=== PATIENT | female | born 1930 | race Caucasian/White ===

== ENCOUNTER 2017-12-08 00:06 | Inpatient (IN) | payer OTHER, MEDICARE ==
[2017-12-08 01:34] VITALS: TEMP 97.5; BMI 24.0
--- NOTE | 2017-12-08 02:05 | PDOC ---
History of Present Illness - General History Source: Patient Exam Limitations: No Limitations - History of Present Illness Initial Comments: 12/08/17 02:37 The patient is an 87 year old female with a significant PMH of CAD (s/p 2 stents , on Plavix), diabetes, HTN, hyperlipidemia who presents to the emergency department with intermittent chest pain over the past month which acutely worsened over the past 2 days. The patient reports prior to presentation her chest pain became a severe 10/10 pressure like sensation with radiation bilaterally to arms. She also reports nausea, vomiting, and diaphoresis with her symptoms. The patient endorses a past history of cigarette use. The patient denies shortness of breath, headache and dizziness. Denies fever, chills, diarrhea and constipation. Denies dysuria, frequency, urgency and hematuria. Allergies: NKA Past surgical history: Stents x2. Appendectomy. Mastectomy. Social history: Former smoker PCP/Cardio: Dr. Crow <Wilmer Corey - Last Filed: 12/08/17 03:26> - General History Source: Patient <Basilio Bar - Last Filed: 12/08/17 19:27> - General Chief Complaint: Pain Stated Complaint: CHEST PAIN Time Seen by Provider: 12/08/17 02:04 Past History <Wilmer Corey - Last Filed: 12/08/17 03:26> - Past Medical History Cardiac Disorders: Yes COPD: No Diabetes: Yes HTN: Yes Hypercholesterolemia: Yes - Surgical History Appendectomy: Yes Cardiac Surgery: Yes (STENTS x 2) Orthopedic Surgery: Yes (R. Femur) - Suicide/Smoking/Psychosocial Hx Smoking History: Former smoker Have you smoked in the past 12 months: No If you are a former smoker, when did you quit?: Over 40 years ago Information on smoking cessation initiated: No Hx Alcohol Use: No Drug/Substance Use Hx: No Substance Use Type: None Hx Substance Use Treatment: No <Basilio Bar - Last Filed: 12/08/17 19:27> - Past Medical History Allergies/Adverse Reactions: Allergies Allergy/AdvReac Type Severity Reaction Status Date / Time No Known Allergies Allergy Verified 12/08/17 01:30 Home Medications: Ambulatory Orders Aspirin [ASA -] 81 mg PO DAILY 02/26/14 Lisinopril [Zestril] 40 mg PO DAILY 06/30/14 Atorvastatin Ca [Lipitor] 40 mg PO HS 01/29/16 Clopidogrel Bisulfate [Plavix -] 75 mg PO DAILY 01/29/16 Diltiazem HCl [Diltiazem 24Hr ER] 120 mg PO DAILY 01/29/16 Insulin Glargine,Hum.rec.anlog [Kyra Healy] 10 units SQ DAILY 01/29/16 Review of Systems - Review of Systems Able to Perform ROS?: Yes Comments:: 12/08/17 02:37 CONSTITUTIONAL: (+) Diaphoresis Absent: fever, chills, generalized weakness, malaise, loss of appetite HEENT: Absent: rhinorrhea, nasal congestion, throat pain, throat swelling, difficulty swallowing, mouth swelling, ear pain, eye pain, visual Changes CARDIOVASCULAR: (+) Chest pain with radiation bilaterally. Absent: syncope, palpitations, lightheadedness, peripheral edema RESPIRATORY: Absent: cough, shortness of breath, dyspnea with exertion, orthopnea, wheezing, stridor, hemoptysis GASTROINTESTINAL: (+) Nausea (+) Vomiting Absent: abdominal pain, abdominal distension, nausea, vomiting, diarrhea, constipation, melena, hematochezia GENITOURINARY: Absent: dysuria, frequency, urgency, hesitancy, hematuria, flank pain, genital pain MUSCULOSKELETAL: Absent: myalgia, arthralgia, joint swelling SKIN: Absent: rash, itching, pallor HEMATOLOGIC/IMMUNOLOGIC: Absent: easy bleeding, easy bruising, lymphadenopathy, frequent infections ENDOCRINE: Absent: unexplained weight gain, unexplained weight loss, heat intolerance, cold intolerance NEUROLOGIC: Absent: headache, focal weakness or paresthesias, dizziness, unsteady gait, seizure, mental status changes, bladder or bowel incontinence PSYCHIATRIC: Absent: anxiety, depression, suicidal or homicidal ideation, hallucinations. <Wilmer Corey - Last Filed: 12/08/17 03:26> *Physical Exam - Vital Signs Last Vital Signs Temp Pulse Resp BP Pulse Ox 97.5 F L 152 H 20 147/96 95 12/08/17 01:30 12/08/17 01:30 12/08/17 01:30 12/08/17 01:30 12/08/17 01:30 - Physical Exam Comments: 12/08/17 02:38 GENERAL: Well developed, well nourished. Awake and alert. No acute distress. HEENT: Normocephalic, atraumatic. PERRLA, EOMI. No conjunctival pallor. Sclera are non- icteric. Moist mucous membranes. Oropharynx is clear. NECK: Supple. Full ROM. No JVD. Carotid pulses 2+ and symmetric, without bruits. No thyromegaly. No lymphadenopathy. CARDIOVASCULAR: (+) Irregularly irregular rate and rhythm PULMONARY: No evidence of respiratory distress. Lungs clear to auscultation bilaterally. No wheezing, rales or rhonchi. ABDOMINAL: Soft. Non-tender. Non-distended. No rebound or guarding. No organomegaly. Normoactive bowel sounds. MUSCULOSKELETAL Normal range of motion at all joints. No bony deformities or tenderness. No CVA tenderness. EXTREMITIES: No cyanosis. No clubbing. No edema. No calf tenderness. SKIN: Warm and dry. Normal capillary refill. No rashes. No jaundice. NEUROLOGICAL: Alert, awake, appropriate. Cranial nerves 2-12 intact. No deficits to light touch and temperature in face, upper extremities and lower extremities. No motor deficits in the in face, upper extremities and lower extremities. Normoreflexic in the upper and lower extremities. Normal speech. Toes are downgoing bilaterally. PSYCHIATRIC: Cooperative. Good eye contact. Appropriate mood and affect. <Wilmer Corey - Last Filed: 12/08/17 03:26> - Vital Signs Last Vital Signs Temp Pulse Resp BP Pulse Ox 97.5 F L 152 H 20 147/96 95 12/08/17 01:30 12/08/17 01:30 12/08/17 01:30 12/08/17 01:30 12/08/17 01:30 <Basilio Bar - Last Filed: 12/08/17 19:27> Heart Score/ECG Review #1 12/08/17 03:27 EKG done at 2:22 Vent rate 143 bpm Atrial fibrillation with rapid ventricular response. Septal infarct, age undetermined Marked ST abnormality, possible inferior subendocardial injury Marked ST abnormality, possible anterolateral subendocardial injury Abnormal ECG #2 12/08/17 03:28 EKG done at 3:16 (after Cardizem) Vent rate 77 bpm Normal sinus rhythm Nonspecific ST abnormality Abnormal QRS-T angle, consider primary T wave abnormality Abnormal ECG <Wilmer Corey - Last Filed: 12/08/17 03:26> ED Treatment Course - LABORATORY CBC & Chemistry Diagram: 12/08/17 02:27 12/08/17 02:27 <Wilmer Corey - Last Filed: 12/08/17 03:26> - LABORATORY CBC & Chemistry Diagram: 12/08/17 08:30 12/08/17 08:30 <Basilio Bar - Last Filed: 12/08/17 19:27> Medical Decision Making - Medical Decision Making 12/08/17 19:27 Dr. Bar: The scribe's documentation has been prepared under my direction and personally reviewed by me in its entirery. I confirm that the note above accurately reflects all work, treatment, procedures, and medical decision making performed by me. <Basilio Bar - Last Filed: 12/08/17 19:27> *DC/Admit/Observation/Transfer - Attestations Scribe Attestion: 12/08/17 02:38 Documentation prepared by Wilmer Corey, acting as center medical specialist for Basilio Bar DO. <Wilmer Corey - Last Filed: 12/08/17 03:26> - Discharge Dispostion Admit: Yes <Basilio Bar - Last Filed: 12/08/17 19:27> Diagnosis at time of Disposition: New onset a-fib, NSTEMI (non-ST elevated myocardial infarction) Chest pain Qualifiers: Chest pain type: unspecified Qualified Code(s): R07.9 - Chest pain, unspecified - Discharge Dispostion Disposition: TRANSFER ACUTE CARE/OTHER HOSP Condition at time of disposition: Stable
[2017-12-08] MEDS ORDERED: morphine CARPU-JECT 2 MG/1 ML DISP.SYRIN IVPUSH ONE ×2 (02:07→03:09)
[2017-12-08] MEDS ORDERED: ASPIRIN 81 MG CHEWABLE TABLETS PO ONE (02:08)
[2017-12-08] MEDS ORDERED: ONDANSETRON 4 MG/2 ML VIAL IVPUSH STA (02:08)
[2017-12-08] MEDS ORDERED: CLOPIDOGREL BISULFATE 300 MG TABLET PO ONE (02:11)
[2017-12-08] MEDS ORDERED: morphine SULFATE 4 MG/ML VIAL ONE (02:13)
[2017-12-08] MEDS ORDERED: ASPIRIN 325 MG ENTERIC COATED TABLET (FP) ONE ×2 (02:13→02:23)
[2017-12-08] MEDS ORDERED: ONDANSETRON 4 MG/2 ML VIAL ONE (02:13)
[2017-12-08] MEDS ORDERED: dilTIAZem HCL 50 MG/10 ML - 10 ML VIAL IVPUSH ONE (02:22)
[2017-12-08] MEDS ORDERED: dilTIAZem HCL 125 MG/25 ML - 25 ML VIAL ONE (02:23)
[2017-12-08 02:36] LABS: BASO % 0.5 % (0-2.0); EOS % 1.2 % (0-4.5); HEMATOCRIT 30.1 % (32.4-45.2); HEMOGLOBIN 10.2 GM/dL (10.7-15.3); LYMPH % 14.7 % (8-40); MCH 31.2 pg (25.7-33.7); MEAN CELL VOLUME 91.7 fl (80-96); MEAN PLT VOLUME 10.9 fl (7.5-11.1); MONO % 4.8 % (3.8-10.2); NEUT % 78.8 % (42.8-82.8); PLATELET COUNT 193 K/MM3 (134-434); RBC 3.28 M/mm3 (3.60-5.2); RDW 14.6 % (11.6-15.6); WHITE BLOOD COUNT 10.8 K/mm3 (4.0-10.0)
[2017-12-08] MEDS ORDERED: CLOPIDOGREL BISULFATE 300 MG TABLET ONE (02:43)
[2017-12-08 02:47] LABS: INR 1.04 (0.82-1.09); PROTHROMBIN TIME (PATIENT) 11.8 SEC (9.98-11.88)
[2017-12-08 02:58] LABS: ALBUMIN 3.3 g/dl (3.4-5.0); ALK PHOS 89 U/L (45-117); ANION GAP 14 (8-16); BILIRUBIN,TOTAL 0.3 mg/dL (0.2-1.0); BLOOD UREA NITROGEN 22 mg/dL (7-18); CALCIUM 8.7 mg/dL (8.5-10.1); CHLORIDE 106 mmol/L (98-107); CO2 20 mmol/L (21-32); CREATININE 0.8 mg/dL (0.55-1.02); GLUCOSE,RANDOM 221 mg/dL (74-106); SGOT/AST 24 U/L (15-37); SGPT/ALT 17 U/L (12-78); SODIUM 140 mmol/L (136-145); TOT PROT 7.2 g/dl (6.4-8.2)
[2017-12-08] MEDS ORDERED: MORPHINE SULFATE 10 MG/1 ML *VIAL ONE (03:20)
--- NOTE | 2017-12-08 03:49 | PN ---
Teaching Attending Note Name of Resident: Stephanie Bey ATTENDING PHYSICIAN STATEMENT I saw and evaluated the patient. I reviewed the resident's note and discussed the case with the resident. I agree with the resident's findings and plan as documented. SUBJECTIVE: 87 F w. pmhx. of CAD s/p 2 stents on Plavix, DM, HTN, and HLD who presents with intermittent chest pain. States Pain began around 1 month ago. Notes pain has been worse over a 2 day duration. Pain is 10/10 and radiates to arms bilaterally. States she is also nausous, and was diaphoretic. OBJECTIVE: Physical: VS: Vital Signs Period Temp Pulse Resp BP Sys/Phelps Pulse Ox Last 24 Hr 97.5 F 99-152 17-20 147-153/91-96 95-100 GEN: HEENT: CARD: RESP: ABD: EXT: CBCD WBC 10.8 K/mm3 (4.0-10.0) H 12/08/17 02:27 RBC 3.28 M/mm3 (3.60-5.2) L 12/08/17 02:27 Hgb 10.2 GM/dL (10.7-15.3) L D 12/08/17 02:27 Hct 30.1 % (32.4-45.2) L 12/08/17 02:27 MCV 91.7 fl (80-96) 12/08/17 02:27 MCHC 34.0 g/dl (32.0-36.0) 12/08/17 02:27 RDW 14.6 % (11.6-15.6) 12/08/17 02:27 Plt Count 193 K/MM3 (134-434) 12/08/17 02:27 MPV 10.9 fl (7.5-11.1) 12/08/17 02:27 CMP Sodium 140 mmol/L (136-145) 12/08/17 02:27 Potassium 4.0 mmol/L (3.5-5.1) 12/08/17 02:27 Chloride 106 mmol/L (98-107) 12/08/17 02:27 Carbon Dioxide 20 mmol/L (21-32) L 12/08/17 02:27 Anion Gap 14 (8-16) 12/08/17 02:27 BUN 22 mg/dL (7-18) H 12/08/17 02:27 Creatinine 0.8 mg/dL (0.55-1.02) 12/08/17 02:27 Creat Clearance w eGFR > 60 (>60) 12/08/17 02:27 Random Glucose 221 mg/dL (74-106) H 12/08/17 02:27 Calcium 8.7 mg/dL (8.5-10.1) 12/08/17 02:27 Total Bilirubin 0.3 mg/dL (0.2-1.0) D 12/08/17 02:27 AST 24 U/L (15-37) 12/08/17 02:27 ALT 17 U/L (12-78) 12/08/17 02:27 Alkaline Phosphatase 89 U/L (45-117) 12/08/17 02:27 Total Protein 7.2 g/dl (6.4-8.2) 12/08/17 02:27 Albumin 3.3 g/dl (3.4-5.0) L 12/08/17 02:27 CARDIAC ENZYMES Creatine Kinase 116 IU/L (26-192) 12/08/17 02:27 Troponin I 0.37 ng/ml (0.00-0.05) H 12/08/17 02:27 EKG done at 2:22 Vent rate 143 bpm Atrial fibrillation with rapid ventricular response. Septal infarct, age undetermined Marked ST abnormality, possible inferior subendocardial injury Marked ST abnormality, possible anterolateral subendocardial injury Abnormal ECG #2 12/08/17 03:28 EKG done at 3:16 (after Cardizem) Vent rate 77 bpm Normal sinus rhythm Nonspecific ST abnormality Abnormal QRS-T angle, consider primary T wave abnormality Abnormal ECG CXR- Unable to Open on Computer will follow Home Medications Medication Instructions Recorded Aspirin [ASA -] 81 mg PO DAILY 02/26/14 Lisinopril [Zestril] 40 mg PO DAILY 02/26/14 Atorvastatin Ca [Lipitor] 40 mg PO HS 01/29/16 Clopidogrel Bisulfate [Plavix -] 75 mg PO DAILY 01/29/16 Diltiazem HCl [Diltiazem 24Hr ER] 120 mg PO DAILY 01/29/16 Insulin Glargine,Hum.rec.anlog 10 units SQ DAILY 01/29/16 [Kyra Healy] ASSESSMENT AND PLAN: 87 F w. pmhx. of CAD s/p 2 stents on Plavix, DM, HTN, and HLD who presents with intermittent chest pain, found to be in New onset A-Fib, and elevated troponin 1.) Chest Pain- RO AC/ Hc. of CAD - HEART 7 - Troponin Elevation - NSTEMI vs. Demand - Trend Trop/EKg - May be due to new onset A-Fib - S/P ASA/Plavix in ED - 02 NC - Morphine/Nitro prn CP - BB 2.) NEW Onset A-Fib - [id number] - A/C with Lovenox 70 q 12 - S/P Cardizem in ED, now rate controlled - Echo 3.) DM - FS - RAISS - DM Diet - Glargine 4.) HTN - C/W Cardizem/ Bryon 5.) HLD - C/W Statin 6.) Dvt Ppx - On Lovenox Place in [facility]-Tele
[2017-12-08] MEDS ORDERED: dilTIAZem HCL 50 MG/10 ML - 10 ML VIAL IVPUSH PRN (04:19)
[2017-12-08] MEDS ORDERED: morphine SULFATE 4 MG/ML VIAL IVPUSH PRN (04:21)
[2017-12-08] MEDS ORDERED: NITROGLYCERIN SUBLINGUAL 1/150 0.4 MG TAB SL PRN (04:21)
--- NOTE | 2017-12-08 04:42 | HP ---
CHIEF COMPLAINT: Chest Pain PCP: None HISTORY OF PRESENT ILLNESS: 87yo F with PMHx of CAD s/p 2 stents who presents with severe typical chest pain. It is pressure like, radiates down both arms, associated with diaphoresis , and improved with morphine in ambulance. The patient admits to anginal symptoms over the past two weeks. Patient follows w/ Dr Crow. Received 2 stents in 2013 after +stress test. States 2/3 diseased vessels were canalized w / stent at [facility]. In the ER, patient was hemodynamically stable. Labs notable for mild troponins. She was given morphine, O2, loading dose ASA/plavix with relief of pain. EKG was notable for new onset Afib w/ RVR in the 150s with ST depressions in the inferior and lateral leads. She was given 20 of Cardizem with successful conversion into sinus rhythm. Recent Travel: Denies PAST MEDICAL HISTORY: CAD s/p 2 stents, DM2, HTN, HLD, Breast CA (s/p mastectomy ) PAST SURGICAL HISTORY: 2 stents, L mastectomy w/ unilateral lymphedema Social History: Smoking: Prior smoker Alcohol: Denies Drugs: Denies Allergies: No Known Allergies Allergy (Verified 12/08/17 01:30) HOME MEDICATIONS: Home Medications Medication Instructions Recorded Aspirin [ASA -] 81 mg PO DAILY 02/26/14 Lisinopril [Zestril] 40 mg PO DAILY 02/26/14 Atorvastatin Ca [Lipitor] 40 mg PO HS 01/29/16 Clopidogrel Bisulfate [Plavix -] 75 mg PO DAILY 01/29/16 Diltiazem HCl [Diltiazem 24Hr ER] 120 mg PO DAILY 01/29/16 Insulin Glargine,Hum.rec.anlog 10 units SQ DAILY 01/29/16 [Kyra Healy] REVIEW OF SYSTEMS CONSTITUTIONAL: Absent: fever, chills, diaphoresis, generalized weakness, malaise, loss of appetite, weight change HEENT: Absent: rhinorrhea, nasal congestion, throat pain, throat swelling, difficulty swallowing, mouth swelling, ear pain, eye pain CARDIOVASCULAR: +chest pain Absent: syncope, palpitations, irregular heart rate , lightheadedness, RESPIRATORY: Absent: cough, shortness of breath, dyspnea with exertion, orthopnea, wheezing, stridor, hemoptysis GASTROINTESTINAL:Absent: abdominal pain, abdominal distension, nausea, vomiting , diarrhea, constipation, melena, hematochezia GENITOURINARY: Absent: dysuria, frequency, urgency, hesitancy, hematuria, flank pain, genital pain MUSCULOSKELETAL: Absent: myalgia, arthralgia, joint swelling, back pain, neck pain SKIN: Absent: rash, itching, pallor HEMATOLOGIC/IMMUNOLOGIC: Absent: easy bleeding, easy bruising, lymphadenopathy, frequent infections ENDOCRINE:Absent: unexplained weight gain, unexplained weight loss, heat intolerance, cold intolerance NEUROLOGIC: Absent: headache, focal weakness or paresthesias, dizziness, unsteady gait, seizure, mental status changes, PSYCHIATRIC: Absent: anxiety, depression, suicidal or homicidal ideation, hallucinations. PHYSICAL EXAMINATION Vital Signs Period Temp Pulse Resp BP Sys/Phelps Pulse Ox Last 24 Hr 97.5 F 99-152 17-20 147-153/91-96 95-100 GEN: AAOx3, NAD, Lying comfortably, conversing with examiner HEENT: PERRLA, EOMi CV: S1, S2, RRR with 3/6 systolic murmur in RUSB LUNG: Mild basilar crackles ABD: Soft, NT, ND MSK: +2 edema in RLE (related to lymphedema from prior mastectomy) NEURO: CN 2-12 intact, no msk or sensation deficits ASSESSMENT/PLAN: 87yo F with PMHx of CAD s/p 2 stents who presents with severe typical chest pain , found to have NSTEMI with new onset Afib w/ RVR # Chest Pain -- Differentials include NSTEMI vs demand from RVR. ST depressions resolved with rate control. Continue to trend troponins, if trops trend up with rate control, consider primary NSTEMI. Given loading dose ASA, plavix. Continue w/ O2 , morphine/nitro PRN. Cardio consult, likely cath. # New onset Afib -- Presented in RVR, converted to sinus after Cardizem 20. Likely secondary to underlying cardiac disease. Will get TSH. Echo. Continue home long acting cardizem with prn pushes. VTE prophylaxis with Lovenox 1mg/kg BID. # HTN -- Controlled. Continue long acting Cardizem and ACEi # IDDM -- Continue long acting glargine. BGM, ISS. # HLD -- Continue home statin # FEN/PPx -- Cardiac diet, no IVF. Already on Lovenox for VTE prophylaxis # Dispo -- Admit to tele Case d/w Dr Houston & Dr Soto Morning team to take over in AM Stephanie Bey MD - PGY1 Internal Medicine Visit type - Emergency Visit Emergency Visit: Yes ED Registration Date: 12/08/17 Care time: The patient presented to the Emergency Department on the above date and was hospitalized for further evaluation of their emergent condition. - New Patient This patient is new to me today: Yes Date on this admission: 12/08/17 - Critical Care Critical Care patient: No Hospitalist Screening - Colonoscopy Questionnaire Colonoscopy Questionnaire: Colonoscopy Questionnaire - Patient: 50 - 75 years old and never had a screening colonoscopy: Unknown History of colon or rectal polyps, or CA: Unknown History of IBD, Crohn's disease or UC: Unknown History of abdominal radiation therapy as a child: Unknown - Relative: 1 with colon or rectal CA, or polyps at age 60 or younger: Unknown Colon or rectal CA diagnosed at age 45 or younger: Unknown Multiple relatives with colon or rectal CA: Unknown - Outcome: Screening Result: Negative Screen
[2017-12-08] MEDS ORDERED: INSULIN DETEMIR 100 UNITS/ML MDV SQ SCH (07:00)
[2017-12-08 08:57] LABS: HEMATOCRIT 30.6 % (32.4-45.2); HEMOGLOBIN 10.2 GM/dL (10.7-15.3); MCH 30.5 pg (25.7-33.7); MCHC 33.4 g/dl (32.0-36.0); MEAN CELL VOLUME 91.2 fl (80-96); MEAN PLT VOLUME 11.1 fl (7.5-11.1); PLATELET COUNT 195 K/MM3 (134-434); RBC 3.35 M/mm3 (3.60-5.2); RDW 14.1 % (11.6-15.6); WHITE BLOOD COUNT 11.8 K/mm3 (4.0-10.0)
[2017-12-08 09:22] LABS: ALBUMIN 3.2 g/dl (3.4-5.0); ANION GAP 9 (8-16); BLOOD UREA NITROGEN 20 mg/dL (7-18); CALCIUM 8.4 mg/dL (8.5-10.1); CHLORIDE 107 mmol/L (98-107); CHOLESTEROL 119 mg/dL (50-200); CO2 24 mmol/L (21-32); CREATININE 0.8 mg/dL (0.55-1.02); GLUCOSE,RANDOM 155 mg/dL (74-106); LDL CHOLESTEROL (ONLY SJRH) 57 mg/dL (5-100); MAGNESIUM 1.8 mg/dL (1.8-2.4); PHOSPHOROUS 3.7 mg/dL (2.5-4.9); POTASSIUM 4.6 mmol/L (3.5-5.1); SGOT/AST 85 U/L (15-37); SGPT/ALT 21 U/L (12-78); SODIUM 140 mmol/L (136-145); TRIGLYCERIDES 94 mg/dL (35-160)
[2017-12-08 09:35] LABS: ALK PHOS 78 U/L (45-117); BILIRUBIN,TOTAL 0.1 mg/dL (0.2-1.0); HDL CHOLESTEROL 59 mg/dL (40-60); TOT PROT 6.8 g/dl (6.4-8.2)
[2017-12-08] MEDS ORDERED: HEPARIN NA (PORCINE) 5,000 UNITS/ML 1ML VIAL IVPUSH PRN ×2 (09:51)
[2017-12-08] MEDS ORDERED: ASPIRIN 81 MG CHEWABLE TABLETS ONE (09:56)
[2017-12-08] MEDS ORDERED: ENOXAPARIN NA (PORCINE) 80 MG/0.8 ML DISP.SYRIN SQ SCH (10:00)
[2017-12-08] MEDS ORDERED: LISINOPRIL 20 MG TABLET (FP) PO SCH (10:00)
[2017-12-08] MEDS ORDERED: ASPIRIN 81 MG CHEWABLE TABLETS PO SCH (10:00)
[2017-12-08] MEDS ORDERED: CLOPIDOGREL BISULFATE 75 MG TABLET (FP) PO SCH (10:00)
--- NOTE | 2017-12-08 10:02 | PDOC ---
*Physical Exam - Vital Signs Last Vital Signs Temp Pulse Resp BP Pulse Ox 97.5 F L 75 18 114/65 100 12/08/17 01:30 12/08/17 06:49 12/08/17 06:49 12/08/17 06:49 12/08/17 06:49 - Physical Exam Comments: 12/08/17 09:58 pt with elevated trop of 14.6, minimal chests discomfort. ekg w/o marissa/ depressions. cardiology at bedside. will transfer for cath. ED Treatment Course - LABORATORY CBC & Chemistry Diagram: 12/08/17 08:30 12/08/17 08:30 - ADDITIONAL ORDERS Additional order review: Laboratory Results 12/08/17 12/08/17 12/08/17 02:27 02:27 02:27 PT with INR 11.80 INR 1.04 Sodium 140 Potassium 4.0 Chloride 106 Carbon Dioxide 20 L Anion Gap 14 BUN 22 H Creatinine 0.8 Creat Clearance w eGFR > 60 Random Glucose 221 H Calcium 8.7 Total Bilirubin 0.3 D AST 24 ALT 17 Alkaline Phosphatase 89 Creatine Kinase Troponin I Total Protein 7.2 Albumin 3.3 L Blood Type O POSITIVE Antibody Screen Positive H Antibody Identification No Result Required. Antigen Identification No Result Required. 12/08/17 02:27 PT with INR INR Sodium Potassium Chloride Carbon Dioxide Anion Gap BUN Creatinine Creat Clearance w eGFR Random Glucose Calcium Total Bilirubin AST ALT Alkaline Phosphatase Creatine Kinase 116 Troponin I 0.37 H Total Protein Albumin Blood Type Antibody Screen Antibody Identification Antigen Identification 12/08/17 02:27 RBC 3.28 L MCV 91.7 MCHC 34.0 RDW 14.6 MPV 10.9 Neutrophils % 78.8 D Lymphocytes % 14.7 D Monocytes % 4.8 Eosinophils % 1.2 D Basophils % 0.5 - Medications Given in the ED: ED Medications Discontinued Medications Generic Name Dose Route Start Last Admin Trade Name Freq PRN Reason Stop Dose Admin Aspirin 324 mg 12/08/17 02:08 12/08/17 02:30 Asa - PO 12/08/17 02:09 324 mg ONCE ONE Administration Clopidogrel Bisulfate 300 mg 12/08/17 02:11 12/08/17 02:45 Plavix - PO 12/08/17 02:12 300 mg ONCE ONE Administration Diltiazem HCl 20 mg 12/08/17 02:22 12/08/17 02:30 Cardizem Injection - IVPUSH 12/08/17 02:23 20 mg ONCE ONE Administration Morphine Sulfate 4 mg 12/08/17 02:07 12/08/17 02:30 Morphine Injection - IVPUSH 12/08/17 02:08 4 mg ONCE ONE Administration Morphine Sulfate 2 mg 12/08/17 03:09 12/08/17 03:25 Morphine Injection - IVPUSH 12/08/17 03:10 2 mg ONCE ONE Administration Ondansetron HCl 4 mg 12/08/17 02:08 12/08/17 02:35 Zofran Injection IVPUSH 12/08/17 02:09 4 mg ONCE STA Administration *DC/Admit/Observation/Transfer Diagnosis at time of Disposition: New onset a-fib, NSTEMI (non-ST elevated myocardial infarction) Chest pain Qualifiers: Chest pain type: unspecified Qualified Code(s): R07.9 - Chest pain, unspecified - Discharge Dispostion Condition at time of disposition: Stable - Referrals - Patient Instructions - Post Discharge Activity
[2017-12-08] MEDS ORDERED: HEPARIN INFUSION - 25,000 UNITS/500 ML INFUS.BAG IVPB ONE (10:03)
[2017-12-08] MEDS ORDERED: INSULIN REGULAR HUMAN 100 UNITS/ML *VIAL ONE ×2 (10:04→10:18)
[2017-12-08] MEDS ORDERED: INSULIN DETEMIR 100 UNITS/ML MDV SQ ONE (10:04)
[2017-12-08] MEDS ORDERED: HEPARIN SOD,PORK IN 0.45% NACL 25,000 UNIT/500 ML INFUS.BAG IVPB SCH (10:15)
[2017-12-08 10:25] LABS: MAGNESIUM 1.6 mg/dL (1.8-2.4)
--- NOTE | 2017-12-08 10:43 | DS ---
Physical Examination Vital Signs: Vital Signs Temperature 36.4 C L 12/08/17 01:30 Pulse Rate 75 12/08/17 06:49 Respiratory Rate 18 12/08/17 06:49 Blood Pressure 114/65 12/08/17 06:49 O2 Sat by Pulse Oximetry (%) 100 12/08/17 06:49 Labs: CBC, BMP 12/08/17 08:30 12/08/17 08:30 Discharge Summary Reason For Visit: CHEST PAIN NSTEMI NEW ONSET AFIB Current Active Problems Chest pain (Acute) NSTEMI (non-ST elevated myocardial infarction) (Acute) New onset a-fib (Acute) Condition: Stable - Instructions Diet, Activity, Other Instructions: You were admitted to the hospital for chest pain and were found to have injury to your heart. You are being transferred to [facility] to the care of Dr. Gannon for a cardiac catheterization. Referrals: Ra Crow MD [Staff Physician] - Disposition: TRANSFER ACUTE CARE/OTHER HOSP - Home Medications Comprehensive Discharge Medication List: Ambulatory Orders Aspirin [ASA -] 81 mg PO DAILY 02/26/14 Lisinopril [Zestril] 40 mg PO DAILY 02/26/14 Atorvastatin Ca [Lipitor] 40 mg PO HS 01/29/16 Clopidogrel Bisulfate [Plavix -] 75 mg PO DAILY 01/29/16 Diltiazem HCl [Diltiazem 24Hr ER] 120 mg PO DAILY 01/29/16 Insulin Glargine,Hum.rec.anlog [Kyra Healy] 10 units SQ DAILY 01/29/16
[2017-12-08] MEDS: INSULIN SLIDING SCALE (NOVOLOG) 1 VIAL SQ SCH ×2 (10:52→10:53)
--- NOTE | 2017-12-08 11:06 | EKG ---
Test Reason : Blood Pressure : / mmHG Vent. Rate : 143 BPM Atrial Rate : 147 BPM P-R Int : 000 ms QRS Dur : 088 ms QT Int : 304 ms P-R-T Axes : 000 003 220 degrees QTc Int : 469 ms ATRIAL FIBRILLATION WITH RAPID VENTRICULAR RESPONSE SEPTAL INFARCT (CITED ON OR BEFORE 29-JAN-2016) MARKED ST ABNORMALITY, POSSIBLE INFERIOR SUBENDOCARDIAL INJURY MARKED ST ABNORMALITY, POSSIBLE ANTEROLATERAL SUBENDOCARDIAL INJURY ABNORMAL ECG WHEN COMPARED WITH ECG OF 29-JAN-2016 17:35, SIGNIFICANT CHANGES HAVE OCCURRED Confirmed by GEE OWEN MD ([id number]) on 12/08/2017 11:05:58 AM Referred By: Confirmed By:GEE OWEN MD
[2017-12-08 11:28] VITALS: BP 122/54; PULSE 79
--- NOTE | 2017-12-08 12:19 | CON.CARD ---
Cardiology Consult (text) - Consultation Consultation Note: cc: cp hpi: 87 f hx cad s/p remote pci, dm, htn, hld, here with cp. Yesterday had palps (heart racing) with central chest pressure. No sob, dizzy, loc, pnd, orthopnea. Chronic mild le edema unchanged. Came to er and found new afib with rvr. Given iv dilt and hr improved and converted to sr. ECG in afib showed rvr with lat/inf st deps. Trops + so treated as nstemi. Currently with mild cp. pmh; per hpi psh: appendectomy social: ex tob ros: per hpi; no nvd, fver, cough, georges, vision changes, gib, hematuria, dysuria fam: nc meds: Home Medications Medication Instructions Recorded Aspirin [ASA -] 81 mg PO DAILY 02/26/14 Lisinopril [Zestril] 40 mg PO DAILY 02/26/14 Atorvastatin Ca [Lipitor] 40 mg PO HS 01/29/16 Clopidogrel Bisulfate [Plavix -] 75 mg PO DAILY 01/29/16 Diltiazem HCl [Diltiazem 24Hr ER] 120 mg PO DAILY 01/29/16 Insulin Glargine,Hum.rec.anlog 10 units SQ DAILY 01/29/16 [Tojuanjo Solkathy] pe: Vital Signs Temp 97.5 F L 12/08/17 01:30 Pulse 79 12/08/17 11:26 Resp 16 12/08/17 11:26 BP 122/54 12/08/17 11:26 Pulse Ox 96 12/08/17 11:26 Intake & Output 12/07/17 12/08/17 12/08/17 23:59 11:59 23:59 Weight 149 lb Other: Height 5 ft 6 in Body Mass Index (BMI) 24.0 Weight Measurement Method Est/Stated by Patient nad no jvd rrr s1s2 no mrg cta bl nl eff aaox3 trace le edema bl abd nt nd pos bs no jaundice diaphoresis pos dp pt no carotid bruits Laboratory Last Values WBC 11.8 K/mm3 (4.0-10.0) H 12/08/17 08:30 RBC 3.35 M/mm3 (3.60-5.2) L 12/08/17 08:30 Hgb 10.2 GM/dL (10.7-15.3) L 12/08/17 08:30 Hct 30.6 % (32.4-45.2) L 12/08/17 08:30 MCV 91.2 fl (80-96) 12/08/17 08:30 MCH 30.5 pg (25.7-33.7) 12/08/17 08:30 MCHC 33.4 g/dl (32.0-36.0) 12/08/17 08:30 RDW 14.1 % (11.6-15.6) 12/08/17 08:30 Plt Count 195 K/MM3 (134-434) 12/08/17 08:30 MPV 11.1 fl (7.5-11.1) 12/08/17 08:30 Neutrophils % 78.8 % (42.8-82.8) D 12/08/17 02:27 Lymphocytes % 14.7 % (8-40) D 12/08/17 02:27 Monocytes % 4.8 % (3.8-10.2) 12/08/17 02:27 Eosinophils % 1.2 % (0-4.5) D 12/08/17 02:27 Basophils % 0.5 % (0-2.0) 12/08/17 02:27 PT with INR 11.80 SEC (9.98-11.88) 12/08/17 02:27 INR 1.04 (0.82-1.09) 12/08/17 02:27 Sodium 140 mmol/L (136-145) 12/08/17 08:30 Potassium 4.6 mmol/L (3.5-5.1) 12/08/17 08:30 Chloride 107 mmol/L (98-107) 12/08/17 08:30 Carbon Dioxide 24 mmol/L (21-32) 12/08/17 08:30 Anion Gap 9 (8-16) 12/08/17 08:30 BUN 20 mg/dL (7-18) H 12/08/17 08:30 Creatinine 0.8 mg/dL (0.55-1.02) 12/08/17 08:30 Creat Clearance w eGFR > 60 (>60) 12/08/17 08:30 Random Glucose 155 mg/dL (74-106) H 12/08/17 08:30 Hemoglobin A1c % 7.0 % (4.8-6.0) H 12/08/17 08:30 Calcium 8.4 mg/dL (8.5-10.1) L 12/08/17 08:30 Phosphorus 3.7 mg/dL (2.5-4.9) 12/08/17 08:30 Magnesium 1.8 mg/dL (1.8-2.4) 12/08/17 08:30 Total Bilirubin 0.1 mg/dL (0.2-1.0) L D 12/08/17 08:30 AST 85 U/L (15-37) H 12/08/17 08:30 ALT 21 U/L (12-78) 12/08/17 08:30 Alkaline Phosphatase 78 U/L (45-117) 12/08/17 08:30 Creatine Kinase 625 IU/L (26-192) H 12/08/17 08:30 Creatine Kinase Index 7.8 % (0.0-5.0) H* 12/08/17 08:30 CK-MB (CK-2) 49.286 ng/mL (0.5-3.6) H 12/08/17 08:30 Troponin I 14.60 ng/ml (0.00-0.05) H* 12/08/17 08:30 Total Protein 6.8 g/dl (6.4-8.2) 12/08/17 08:30 Albumin 3.2 g/dl (3.4-5.0) L 12/08/17 08:30 Triglycerides 94 mg/dL (35-160) 12/08/17 08:30 Cholesterol 119 mg/dL (50-200) 12/08/17 08:30 Total LDL Cholesterol 57 mg/dL (5-100) 12/08/17 08:30 HDL Cholesterol 59 mg/dL (40-60) 12/08/17 08:30 TSH 3.82 uIU/ml (0.358-3.74) H 12/08/17 08:30 Blood Type O POSITIVE 12/08/17 02:27 Antibody Screen Positive H 12/08/17 02:27 Antibody Identification No Result Required. 12/08/17 02:27 Antigen Identification No Result Required. 12/08/17 02: ecg 12/08: afib with rvr and inf lat st deps ecg 12/09: sr, nl intervals, no ischemic changes tele: sr cxr: no chf est cct 35 mins a/p: 87 f hx cad s/p remote pci, dm, htn, hld, here with cp. cp, cad, nstemi: -elevated trops and st depressions in setting of afib with rvr -possibly demand ischemia but given sharp rise in trop/ck and mild cp persisting when in sr, will treat as nstemi with dapt, hep gtt. Case d/w interventionalist, plan is for cath at [facility] today. -check echo, cont tele -cont statin, steve new afib: -convertd to sr on own overnight -cont dilt for rate control if has afib again -chadsvasc score warrants ac, cont ac with hep gtt for now -check echo htn: -stable, cont current meds hld: -cont statin
--- NOTE | 2017-12-08 13:35 | EKG ---
Test Reason : Blood Pressure : / mmHG Vent. Rate : 077 BPM Atrial Rate : 077 BPM P-R Int : 132 ms QRS Dur : 092 ms QT Int : 416 ms P-R-T Axes : -19 020 092 degrees QTc Int : 470 ms NORMAL SINUS RHYTHM NONSPECIFIC ST ABNORMALITY ABNORMAL QRS-T ANGLE, CONSIDER PRIMARY T WAVE ABNORMALITY ABNORMAL ECG WHEN COMPARED WITH ECG OF 08-DEC-2017 02:22, SIGNIFICANT CHANGES HAVE OCCURRED Confirmed by GEE OWEN MD ([id number]) on 12/08/2017 1:35:31 PM Referred By: Confirmed By:GEE OWEN MD
[2017-12-08] MEDS ORDERED: ATORVASTATIN CA 40 MG TABLET (FP) PO SCH (22:00)
== END 2017-12-08 12:15 | disposition short-term general hospital (02) | DRG 282 ==
LOC: JER 00:06 → JERBED 03:51
PROVIDERS: ADMIT Internal Medicine; ATTEND Internal Medicine
DX: I21.4 Non-ST elevation (NSTEMI) myocardial infarction (principal); I48.91 Unspecified atrial fibrillation; I10 Essential (primary) hypertension; E78.5 Hyperlipidemia, unspecified; E11.9 Type 2 diabetes mellitus without complications; I25.10 Atherosclerotic heart disease of native coronary artery without angina pectoris; R07.89 Other chest pain; Z87.891 Personal history of nicotine dependence; Z85.3 Personal history of malignant neoplasm of breast; Z95.5 Presence of coronary angioplasty implant and graft
CPT/HCPCS: 36415; 71045-TC-FY; 80053; 80061; 82550; 82553; 82962; 83036; 83721; 83735; 84100; 84443; 84484; 85025; 85027; 85610; 86850; 86870; 86900; 86901; 86902; 93005; 93010; 93306-TC; 99285-25

== ENCOUNTER 2019-05-02 17:14 | Inpatient (IN) | payer OTHER, MEDICARE ==
--- NOTE | 2019-05-02 17:55 | PDOC ---
Attending Attestation - Resident Resident Name: Edison Arias - ED Attending Attestation I have performed the following: I have examined & evaluated the patient, The case was reviewed & discussed with the resident, I agree w/resident's findings & plan, Exceptions are as noted - HPI HPI: 05/02/19 17:42 88y F hx of CAD (SP CABG), DM, HTN, HL, presents with chest pain/vision changes this morning upon awakening, pt also felt ligheaded and unsteady when getting out of her car that prompted her neighbors to call EMS. Pt states she efels better currently. BGM by EMS 175. pt endorsed feeling nauseus, feeling generally weak with her symptoms. denies any fever/chills, cough, sob, abd pain , back pain, numbnes/tingling/wekneass, diarrhea, dysuria. pt states her vision is currently normal. Allergies: NKA Past surgical history: Stents x2. Appendectomy. Mastectomy. Social history: Former smoker PCP/Cardio: Dr. Crow GENERAL: The patient is awake, alert, and fully oriented, Nontoxic - in no acute distress. HEAD: Normocephalic, atraumatic. EYES: extraocular movements intact, sclera anicteric, conjunctiva clear. ENT: Normal voice, Moist mucous membranes. NECK: Normal range of motion, supple LUNGS: Breath sounds equal, clear to auscultation bilaterally. No wheezes, no rhonchi, no rales. HEART: tachycardic, normal S1 and S2 without murmur, rub or gallop. ABDOMEN: Soft, nontender, No guarding, no rebound. No CVA tenderness EXTREMITIES: Normal range of motion, no edema. NEUROLOGICAL: No facial assymetry, Normal speech, movin gall 4 extremities spontaneously and symmetrically, sensation intact, normal finger to nose and rapid alternating movements PSYCH: Normal mood, normal affect. SKIN: hot to touch, Dry, normal turgor, ddx - acs, consider possible TIA with neuro sx earlier today, metabolic derangement will ck cbc, cmp, trops, ekg will give asa pt currently does not have any chest pain. - Physicial Exam PE: 05/06/19 11:05 seee above - Medical Decision Making 05/02/19 18:15 pt noted febrile septic orderset obtained 05/02/19 19:15 case signed out to evening team awaiting lab work. and a source of infection Heart Score/ECG Review - ECG Impressions Comment:: 05/02/19 17:55 Twelve-lead EKG was performed and reviewed by me. There is normal sinus rhythm with a rate of 115 normal axis Impression: sinus tachycardia
[2019-05-02 18:01] VITALS: BMI 24.6
--- NOTE | 2019-05-02 18:17 | PDOC ---
History of Present Illness - General Stated Complaint: CHEST PAIN Time Seen by Provider: 05/02/19 17:41 - History of Present Illness Initial Comments: 05/02/19 19:23 88 y/o F hx of HTN, DM, HTN, CAD (s/p cabg) HLD and Breast Ca s/p left sided mastectomy presents to the ED with lightheadedness and chest pain. She woke up this morning feeling non-radiating pain and tightness in the center of her chest as well as associated blurry vision. She recovered somewhat and was well enough to leave the house driving herself. On her return home a few hours ago she started feeling lightheaded and felt like she was going to pass out when her neighbours called EMS. She denies any fevers, chills, trauma, falls, loc, abdominal pain, bloody stools, dysuria, hematuria or cough 05/02/19 19:36 05/02/19 19:37 Past History - Past Medical History Allergies/Adverse Reactions: Allergies Allergy/AdvReac Type Severity Reaction Status Date / Time No Known Allergies Allergy Verified 12/08/17 01:30 Home Medications: Ambulatory Orders Lisinopril [Zestril] 20 mg PO DAILY 02/26/14 Atorvastatin Ca [Lipitor] 80 mg PO HS 01/29/16 Insulin Glargine,Hum.rec.anlog [Toujeo Solostar] 20 units SQ HS 01/29/16 Apixaban [Eliquis] 5 mg PO BID 05/03/19 Metoprolol Succinate 1 tablet PO BID 05/03/19 Cardiac Disorders: Yes COPD: No Diabetes: Yes HTN: Yes Hypercholesterolemia: Yes - Surgical History Appendectomy: Yes Cardiac Surgery: Yes (STENTS x 2) Orthopedic Surgery: Yes (R. Femur) - Suicide/Smoking/Psychosocial Hx Smoking History: Former smoker Have you smoked in the past 12 months: No If you are a former smoker, when did you quit?: Over 40 years ago Hx Alcohol Use: No Drug/Substance Use Hx: No Substance Use Type: None Hx Substance Use Treatment: No Review of Systems - Review of Systems Constitutional: No: Chills, Fever HEENTM: Yes: Blurred Vision Respiratory: No: Cough, Shortness of Breath Cardiac (ROS): Yes: Symptoms Reported ABD/GI: No: Diarrhea, Abdominal cramping : No: Burning, Dysuria Musculoskeletal: Yes: Back Pain Integumentary: No: Bruising, Change in Color Neurological: Yes: Symptoms reported *Physical Exam - Physical Exam General Appearance: Yes: Appropriately Dressed. No: Apparent Distress HEENT: positive: EOMI, Normal Voice, Symmetrical Neck: positive: Trachea midline, Supple. negative: Tender Cardiovascular: positive: Regular Rhythm, Regular Rate, S1, S2. negative: JVD Vascular Pulses: Dorsalis-Pedis (R): 2+, Doralis-Pedis (L): 2+ Gastrointestinal/Abdominal: positive: Protuberent. negative: Guarding, Tenderness Musculoskeletal: positive: Normal Inspection. 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 Pts vital signs show fever of 102.6 NIHSS stroke scale = 0 Septic work up in place Labs and blood works sent to the lab Pt signed out to Dr. Richey. 05/02/19 19:43 *DC/Admit/Observation/Transfer Diagnosis at time of Disposition: Systemic inflammatory response syndrome (SIRS) - Discharge Dispostion Condition at time of disposition: Fair - Referrals - Patient Instructions - Post Discharge Activity
[2019-05-02 19:24] LABS: BASO % 0.3 % (0-2.0); HEMATOCRIT 40.4 % (32.4-45.2); HEMOGLOBIN 13.5 GM/dL (10.7-15.3); LYMPH % 2.7 % (8-40); MCH 30.5 pg (25.7-33.7); MCHC 33.5 g/dl (32.0-36.0); MEAN CELL VOLUME 91.2 fl (80-96); MEAN PLT VOLUME 10.9 fl (7.5-11.1); MONO % 3.9 % (3.8-10.2); NEUT % 93.1 % (42.8-82.8); PLATELET COUNT 126 K/MM3 (134-434); RBC 4.43 M/mm3 (3.60-5.2); RDW 13.8 % (11.6-15.6); WHITE BLOOD COUNT 16.2 K/mm3 (4.0-10.0)
[2019-05-02 19:29] LABS: VENOUS PH 7.44 (7.31-7.41)
[2019-05-02 19:30] LABS: VENOUS PO2 < 49 mmHg (28-48)
[2019-05-02 19:39] LABS: EPI CELLS 2.4 /HPF (0-5/HPF); HYALINE CASTS 12 /lpf (0-8); URINE APPEARANCE CLEAR; URINE BACTERIA 3.4 /hpf (NEGATIVE); URINE BILIRUBIN NEGATIVE (NEGATIVE); URINE COLOR YELLOW; URINE GLUCOSE (UA) NEGATIVE (NEGATIVE); URINE KETONE 1+ (NEGATIVE); URINE LEUK ESTERASE 1+ (NEGATIVE); URINE NITRITE NEGATIVE (NEGATIVE); URINE PROTEIN NEGATIVE (NEGATIVE); URINE RBC 2 /hpf (0-4); URINE UROBILINOGEN 0.2 mg/dL (0.2-1.0); URINE WBC 4 /hpf (0-5)
[2019-05-02] MEDS ORDERED: ASPIRIN 81 MG CHEWABLE TABLETS PO ONE (19:41)
[2019-05-02] MEDS ORDERED: ACETAMINOPHEN 1000 MG/100 ML VIAL (NON FORMULARY) IVPB ONE (19:43)
--- NOTE | 2019-05-02 19:43 | PDOC ---
*Physical Exam - Vital Signs Last Vital Signs Temp Pulse Resp BP Pulse Ox 102.6 F H 120 H 20 140/88 97 05/02/19 17:57 05/02/19 17:57 05/02/19 17:57 05/02/19 17:57 05/02/19 17:57 ED Treatment Course - LABORATORY CBC & Chemistry Diagram: 05/03/19 06:12 05/03/19 06:12 - ADDITIONAL ORDERS Additional order review: Laboratory Results 05/02/19 05/02/19 19:20 19:20 VBG pH 7.44 H POC VBG pCO2 36.0 L POC VBG pO2 < 49 H VBG HCO3 23.9 VBG O2 Sat (Betty) 49.4 L VBG Base Excess 0.5 Urine Color Yellow Urine Appearance Clear Urine pH 5.0 Ur Specific [place] 1.017 Urine Protein Negative Urine Glucose (UA) Negative Urine Ketones 1+ H Urine Blood Negative Urine Nitrite Negative Urine Bilirubin Negative Urine Urobilinogen 0.2 Ur Leukocyte Esterase 1+ H Urine WBC (Auto) 4 Urine RBC (Auto) 2 Urine Casts (Auto) 12 U Epithel Cells (Auto) 2.4 Urine Bacteria (Auto) 3.4 05/02/19 19:06 RBC 4.43 MCV 91.2 MCHC 33.5 RDW 13.8 MPV 10.9 Neutrophils % 93.1 H Lymphocytes % 2.7 L D Monocytes % 3.9 Eosinophils % 0.0 D Basophils % 0.3 Medical Decision Making - Medical Decision Making 05/02/19 19:42 Patient signed out by Dr. Hewitt 88 y/o female with a PMH of HTN, DM, CAD (s/p CABG), HLD, Breast CA (s/p L sided mastectomy) w/lightheadedness and CP. Patient was febrile (Temp 102.6) and tachycardic @ presentation, ED Adult Sepsis initiated On exam, patient is A&O x2 (oriented to self and place but not date), but slow to answer questions cannot not remember when she had her CABG (as per EMR, 2018) and makes poor eye contact. Reports she lives alone @ home and completes her ADL's without assistance Labs significant for elevated Troponin -? 2/2 to demand ischemia as EKG shows no acute ischemic change (STD in I, II, V5-V6 c/w EKG dated 12/08/17) CT head, CTAP, CT Chest pending - as no obvious source of sepsis and patient remains slow to respond to questions ? Meningitis 05/02/19 23:03 CT: cholelithiais, L adrenal nodule Head CT negative for bleed/acute ischemia 05/02/19 23:05 Supratherapeutic INR, Low platelets, high risk of bleeding w/LP; patient is altered cannot consent Patient's sister: [phone] 05/02/19 23:37 Case d/w Dr. Larios and Dr. Elizabeth, will empirically treat for bacterial/viral meningitis Admitted as inpatient Clinical Impression: ? Sepsis 2/2 to Meningitis *DC/Admit/Observation/Transfer Diagnosis at time of Disposition: Systemic inflammatory response syndrome (SIRS) - Discharge Dispostion Condition at time of disposition: Fair Decision to Admit order: Yes - Referrals - Patient Instructions - Post Discharge Activity
[2019-05-02] MEDS ORDERED: PIPERACILLIN/TAZOB 3.375 GM 3.375 GM in DEXTROSE 5%-WATER - 50 ML IVPB ONE (19:44)
[2019-05-02] MEDS ORDERED: VANCOMYCIN 1,000 MG in DEXTROSE 5%-WATER - 250 ML IVPB ONE (19:44)
[2019-05-02 19:52] LABS: ALBUMIN 3.5 g/dl (3.4-5.0); BILIRUBIN,TOTAL 0.8 mg/dL (0.2-1); BLOOD UREA NITROGEN 17.6 mg/dL (7-18); CALCIUM 9.6 mg/dL (8.5-10.1); CREATININE 1.1 mg/dL (0.55-1.3); POTASSIUM 3.3 mmol/L (3.5-5.1); TOT PROT 7.5 g/dl (6.4-8.2)
[2019-05-02 20:00] LABS: INR 1.6 (0.83-1.09)
[2019-05-02] MEDS ORDERED: ACETAMINOPHEN INJECTION 100 ML IVPB ONE (20:54)
[2019-05-02] MEDS ORDERED: ASPIRIN 81 MG CHEWABLE TABLETS ONE (20:54)
[2019-05-02] MEDS ORDERED: PIPERACILLIN/TAZOB 3.375 GM 3.375 GM/50 ML BAG IVPB ONE (20:54)
[2019-05-02] MEDS ORDERED: VANCOMYCIN 1 GRAM (PRE-DOCKED) 1,000 MG/250 ML BAG IVPB ONE (20:54)
[2019-05-02 22:38] LABS: PLATELET ESTIMATE DECREASED
[2019-05-02] MEDS ORDERED: SODIUM CHLORIDE 1,000 ML IV STA (23:38)
--- NOTE | 2019-05-02 23:39 | PN ---
Teaching Attending Note Name of Resident: Kush Boudreaux ATTENDING PHYSICIAN STATEMENT I saw and evaluated the patient. I reviewed the resident's note and discussed the case with the resident. I agree with the resident's findings and plan as documented. SUBJECTIVE: Patient is an 88 year old woman with PMH of HTN, NIDDM, HTN, CAD (s/p CABG and 2 stents), HLD, Paroxysmal Afib (On Eliquis) and Breast Cancer (s/p left sided mastectomy) who presents to the ER with lightheadedness and chest pain. She woke up this morning feeling non-radiating pain and tightness in the center of her chest as well as associated blurry vision. She recovered somewhat and was well enough to leave the house driving herself. On her return home a few hours ago she started feeling lightheaded and felt like she was going to pass out when her neighbours called EMS. She denies any fevers, chills, trauma, falls, loss of consciousness, abdominal pain, bloody stools, dysuria, hematuria or cough. Has has chronic left arm and LLE edema since after her mastectomy. Patient uses a cane. Has not seen an Eye doctor or a footl doctor recently. Has FH of brain cancer and CAD. OBJECTIVE: Alert Vital Signs Period Temp Pulse Resp BP Sys/Phelps Pulse Ox Last 24 Hr 102.6 F 120 20 140/88 97 HEENT: No Jaundice, eye redness or discharge, PERRLA, EOMI. Normocephalic, atraumatic. External ears are normal and hearing is grossly intact. No nasal discharge. Neck: Supple, nontender. No palpable adenopathy or thyromegaly. No JVD Chest: Good effort. Clear to auscultation and percussion. Heart: Regular. No S3 or rub; 2/6 ABEL Abdomen: Not distended, soft, nontender and no HSM. No rebound or guarding. Normal bowel sounds. Ext: Peripheral pulses intact. LUE and LLE lymphedema. Skin: Warm and dry. No petechiae, rash or ecchymosis. Neuro: Alert. Oriented x3. CN 2-12 grossly intact. Poor memory. Sensation grossly intact in all four extremities and DTR are symmetric. Psych: Appropriate mood and affect. Good insight. Current Medications Generic Name Dose Route Start Last Admin Trade Name Freq PRN Reason Stop Dose Admin Sodium Chloride 1,000 mls @ 1,000 mls/hr 05/02/19 23:38 Normal Saline - IV 05/03/19 00:37 ASDIR STA Home Medications Medication Instructions Recorded Aspirin [ASA -] 81 mg PO DAILY 02/26/14 Lisinopril [Zestril] 40 mg PO DAILY 02/26/14 Atorvastatin Ca [Lipitor] 40 mg PO HS 01/29/16 Clopidogrel Bisulfate [Plavix -] 75 mg PO DAILY 01/29/16 Diltiazem HCl [Diltiazem 24Hr ER] 120 mg PO DAILY 01/29/16 Insulin Glargine,Hum.rec.anlog 10 units SQ DAILY 01/29/16 [Kyra Healy] Abnormal Lab Results 05/02/19 05/02/19 05/02/19 19:00 19:06 19:06 WBC 16.2 H Plt Count 126 L D Absolute Neuts (auto) 15.1 H Neutrophils % 93.1 H Neutrophils % (Manual) 90.7 H Lymphocytes % 2.7 L D Lymphocytes % (Manual) 2.1 L PT with INR INR VBG pH POC VBG pCO2 POC VBG pO2 VBG O2 Sat (Betty) Potassium 3.3 L Random Glucose 169 H Lactic Acid 2.8 H* AST 38 H Troponin I 0.18 H Urine Ketones Ur Leukocyte Esterase 05/02/19 05/02/19 05/02/19 19:06 19:20 19:20 WBC Plt Count Absolute Neuts (auto) Neutrophils % Neutrophils % (Manual) Lymphocytes % Lymphocytes % (Manual) PT with INR 19.00 H INR 1.60 H VBG pH 7.44 H POC VBG pCO2 36.0 L POC VBG pO2 < 49 H VBG O2 Sat (Betty) 49.4 L Potassium Random Glucose Lactic Acid AST Troponin I Urine Ketones 1+ H Ur Leukocyte Esterase 1+ H ASSESSMENT AND PLAN: 1. Sepsis with AMS/Chest pain - No obvious source of sepsis. In view of the AMS will treat empirically for meningitis with IV Ampicillin, Vancomycin, Rocephin and Acyclovir. Lumbar puncture could not be done in the ER before antibiotics due to concern for bleeding - low platelets and Eliquis therapy. Will do neurochecks, implement fall precautions, consult ID and Neurologist. Sepsis workup done. EKG shows sinus tachycardia and ST depression in I,II, V5-6 and initial troponin is elevated. Elevted troponin may reflect demand ischemia associated with sepsis, but will admit to telemetry to rule out ACS. Get ECHO to assess LV function and also look for vegetations. Low platelets and hypokalemia are unexplained. Will get sonogram of spleen, get Mg+, give IV KCL and trend platelets. Getting IV normal saline according to sepsis protocol and will trend lactic acid. CT chest/abdomen/pelvis with contrast showed possible cholelithiasis, lobulated isodense material in caecum and left adrenal nodule. Will consult GI for possible colonoscopy and repeat CT in 3 months to evaluate adrenal nodule. No acute evidence of intracranial pathology on noncontrast head CT. Continue comprehensive care of all her comorbid conditions. 2. DM For now, we will hold the home diabetes drugs and implement sliding scale insulin regimen. Provide comprehensive diabetes care with patient teaching and counseling about the importance of adherence to prescribed diabetes regimen, euglycemia, eye care and foot care. 3. Hypertension - Restart suitable outpatient antihypertensive drugs when clinically appropriate. Revise regimen to ensure [id number] excellent BP control and intake counselor patient on the injurious effects of uncontrolled hypertension. Nonpharmacologic measures to control hypertension like weight loss , salt restriction and exercise discussed. Importance of adherence to treatment regimen and attainment of normotension emphasized. 4. DVT prophylaxis - On Eliquis for Afib. 5. Advance directives - Full code
[2019-05-03] MEDS ORDERED: SODIUM CHLORIDE 1,000 ML IV SCH (01:30)
[2019-05-03] MEDS ORDERED: ACYCLOVIR INJECTION 700 MG in DEXTROSE 5%-WATER - 100 ML IVPB SCH (01:45)
--- NOTE | 2019-05-03 02:15 | HP ---
CHIEF COMPLAINT: Chest pain and blurry vision since 1 day PCP: Patient was unable to recall HISTORY OF PRESENT ILLNESS: This is a 88 year old female with PMH significant for CAD (CABG in 2018 and 2x stents in 2016), AFib (on Eliquis), DM, HTN, and HLD. She presented to the ER with complaints of chest pain and blurry vision, with associated dizziness, light headedness, and nausea. She was seated at home and eating breakfast the morning of presentation, when she developed blurry vision in her left eye. It was sudden in onset, with no associated local pain, watering of the eyes, or headaches, and subsided within a few minutes. Shortly afterwards, she developed gradual onset substernal chest pain, rated 4/10 in intensity, described as a pressure like pain. She states that the pain was intermittent, lasted a few minutes, and then resolved. She then left the house to run some errands. When she got back , she had another similar episode of chest pain, which resolved in a few minutes. She did not have any chest pain for the rest of the day, but she did continue to feel nauseated and dizzy. Her neighbour suggested that she visit the ER for her symptoms. She is unable to explain when she met the neighbor yesterday, and struggles to recall events from that evening, but does not complain of any memory loss. She has no associated SOB, palpitations, vomiting, diarrhea, constipation, dysuria, urinary urgency, urinary retention, or hematuria. ER course was notable for: (1) Temp 102.6/WBC 16.2/Lactic Acid 2.8 (2) Zosyn 3.375 Vanco 1000mg administered (3) Trop 0.18 Recent Travel: None PAST MEDICAL HISTORY: CAD (CABG in 2018 and 2x stents in 2016) DM: Does not monitor glucose at home, claims she has it under control. Takes 15 units of Toujeo in the evenings. 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 She states that she does not use a cane to ambulate. For transportation, she drives her car. Smoking: quit 40+ years ago Alcohol: none Drugs: none Family History: Mother had Brain CA Father had an [place] 2 sons have had MIs Allergies No Known Allergies Allergy (Verified 12/08/17 01:30) HOME MEDICATIONS: Home Medications Medication Instructions Recorded Aspirin [ASA -] 81 mg PO DAILY 02/26/14 Lisinopril [Zestril] 40 mg PO DAILY 02/26/14 Atorvastatin Ca [Lipitor] 40 mg PO HS 01/29/16 Clopidogrel Bisulfate [Plavix -] 75 mg PO DAILY 01/29/16 Diltiazem HCl [Diltiazem 24Hr ER] 120 mg PO DAILY 01/29/16 Insulin Glargine,Hum.rec.anlog 10 units SQ DAILY 01/29/16 [Kyra Healy] REVIEW OF SYSTEMS CONSTITUTIONAL: Absent: fever, chills, diaphoresis, generalized weakness, malaise, loss of appetite, weight change HEENT: Absent: rhinorrhea, nasal congestion, throat pain, throat swelling, difficulty swallowing, mouth swelling, ear pain, eye pain, visual changes CARDIOVASCULAR: chest pain, lightheadedness Absent: syncope, palpitations, irregular heart rate, peripheral edema RESPIRATORY: Absent: cough, shortness of breath, dyspnea with exertion, orthopnea, wheezing, stridor, hemoptysis GASTROINTESTINAL: Absent: abdominal pain, abdominal distension, nausea, vomiting, diarrhea, constipation, melena, hematochezia GENITOURINARY: Absent: dysuria, frequency, urgency, hesitancy, hematuria, flank pain, genital pain MUSCULOSKELETAL: Absent: myalgia, arthralgia, joint swelling, back pain, neck pain SKIN: Absent: rash, itching, pallor HEMATOLOGIC/IMMUNOLOGIC: Absent: easy bleeding, easy bruising, lymphadenopathy, frequent infections ENDOCRINE: Absent: unexplained weight gain, unexplained weight loss, heat intolerance, cold intolerance NEUROLOGIC: Absent: headache, focal weakness or paresthesias, dizziness, unsteady gait, seizure, mental status changes, bladder or bowel incontinence PSYCHIATRIC: Absent: anxiety, depression, suicidal or homicidal ideation, hallucinations. PHYSICAL EXAMINATION Vital Signs - 24 hr 05/02/19 17:57 Temperature 102.6 F H Pulse Rate 120 H Respiratory 20 Rate Blood Pressure 140/88 O2 Sat by Pulse 97 Oximetry (%) GENERAL: AOx3, but struggles to recall events from yesterday HEAD: Normal with no signs of trauma. EYES: Pupils equal, round and reactive to light, extraocular movements intact, sclera anicteric, conjunctiva clear. No lid lag. EARS, NOSE, THROAT: Ears normal, nares patent, oropharynx clear without exudates. Moist mucous membranes. NECK: Normal range of motion, supple without lymphadenopathy, JVD, or masses. LUNGS: Breath sounds equal, clear to auscultation bilaterally. No wheezes, and no crackles. No accessory muscle use. HEART: Regular rate and rhythm, normal S1 and S2, systolic murmur at 2nd intercostal space ABDOMEN: Soft, nontender, not distended, normoactive bowel sounds, no guarding, no rebound, no masses. No hepatomegaly or splenomegaly. MUSCULOSKELETAL: Normal range of motion at all joints. No bony deformities or tenderness. No CVA tenderness. UPPER EXTREMITIES: 2+ pulses, warm, well-perfused. No cyanosis. No clubbing. L sided edema LOWER EXTREMITIES: L sided edema, mild tenderness to palpation NEUROLOGICAL: Cranial nerves II-XII intact. Normal speech. Strength UE: 5/5 B/ L LE: 4/5 B/L Sensations UE : intact LE: decreased belowe mid thigh B/L PSYCHIATRIC: Cooperative. Good eye contact. Appropriate mood and affect. SKIN: Warm, dry, normal turgor, no rashes or lesions noted, normal capillary refill. Laboratory Results - last 24 hr 05/02/19 05/02/19 05/02/19 19:00 19:06 19:06 WBC 16.2 H RBC 4.43 Hgb 13.5 Hct 40.4 D MCV 91.2 MCH 30.5 MCHC 33.5 RDW 13.8 Plt Count 126 L D MPV 10.9 Absolute Neuts (auto) 15.1 H Total Counted 100 Neutrophils % 93.1 H Neutrophils % (Manual) 90.7 H Band Neutrophils % 2.1 Lymphocytes % 2.7 L D Lymphocytes % (Manual) 2.1 L Monocytes % 3.9 Monocytes % (Manual) 4 Eosinophils % 0.0 D Eosinophils % (Manual) 0.0 Basophils % 0.3 Basophils % (Manual) 0.0 Myelocytes % (Man) 0 Promyelocytes % (Man) 0 Blast Cells % (Manual) 0 Nucleated RBC % 0 Metamyelocytes 1 Platelet Estimate Decreased Platelet Comment Present PT with INR INR PTT (Actin FS) 33.8 VBG pH POC VBG pCO2 POC VBG pO2 VBG HCO3 VBG O2 Sat (Betty) VBG Base Excess Sodium Potassium Chloride Carbon Dioxide Anion Gap BUN Creatinine Est GFR (CKD-EPI)AfAm Est GFR (CKD-EPI)NonAf Random Glucose Lactic Acid 2.8 H* Calcium Total Bilirubin AST ALT Alkaline Phosphatase Creatine Kinase Creatine Kinase Index CK-MB (CK-2) Troponin I Total Protein Albumin Urine Color Urine Appearance Urine pH Ur Specific Jackson Urine Protein Urine Glucose (UA) Urine Ketones Urine Blood Urine Nitrite Urine Bilirubin Urine Urobilinogen Ur Leukocyte Esterase Urine WBC (Auto) Urine RBC (Auto) Urine Casts (Auto) U Epithel Cells (Auto) Urine Bacteria (Auto) 05/02/19 05/02/19 05/02/19 19:06 19:06 19:20 WBC RBC Hgb Hct MCV MCH MCHC RDW Plt Count MPV Absolute Neuts (auto) Total Counted Neutrophils % Neutrophils % (Manual) Band Neutrophils % Lymphocytes % Lymphocytes % (Manual) Monocytes % Monocytes % (Manual) Eosinophils % Eosinophils % (Manual) Basophils % Basophils % (Manual) Myelocytes % (Man) Promyelocytes % (Man) Blast Cells % (Manual) Nucleated RBC % Metamyelocytes Platelet Estimate Platelet Comment PT with INR 19.00 H INR 1.60 H PTT (Actin FS) VBG pH POC VBG pCO2 POC VBG pO2 VBG HCO3 VBG O2 Sat (Betty) VBG Base Excess Sodium 136 Potassium 3.3 L Chloride 101 Carbon Dioxide 25 Anion Gap 10 BUN 17.6 Creatinine 1.1 Est GFR (CKD-EPI)AfAm 52.65 Est GFR (CKD-EPI)NonAf 45.42 Random Glucose 169 H Lactic Acid Calcium 9.6 Total Bilirubin 0.8 AST 38 H ALT 32 Alkaline Phosphatase 85 Creatine Kinase 160 Creatine Kinase Index 0.7 CK-MB (CK-2) 1.2 Troponin I 0.18 H Total Protein 7.5 Albumin 3.5 Urine Color Yellow Urine Appearance Clear Urine pH 5.0 Ur Specific Jackson 1.017 Urine Protein Negative Urine Glucose (UA) Negative Urine Ketones 1+ H Urine Blood Negative Urine Nitrite Negative Urine Bilirubin Negative Urine Urobilinogen 0.2 Ur Leukocyte Esterase 1+ H Urine WBC (Auto) 4 Urine RBC (Auto) 2 Urine Casts (Auto) 12 U Epithel Cells (Auto) 2.4 Urine Bacteria (Auto) 3.4 05/02/19 19:20 WBC RBC Hgb Hct MCV MCH MCHC RDW Plt Count MPV Absolute Neuts (auto) Total Counted Neutrophils % Neutrophils % (Manual) Band Neutrophils % Lymphocytes % Lymphocytes % (Manual) Monocytes % Monocytes % (Manual) Eosinophils % Eosinophils % (Manual) Basophils % Basophils % (Manual) Myelocytes % (Man) Promyelocytes % (Man) Blast Cells % (Manual) Nucleated RBC % Metamyelocytes Platelet Estimate Platelet Comment PT with INR INR PTT (Actin FS) VBG pH 7.44 H POC VBG pCO2 36.0 L POC VBG pO2 < 49 H VBG HCO3 23.9 VBG O2 Sat (Betty) 49.4 L VBG Base Excess 0.5 Sodium Potassium Chloride Carbon Dioxide Anion Gap BUN Creatinine Est GFR (CKD-EPI)AfAm Est GFR (CKD-EPI)NonAf Random Glucose Lactic Acid Calcium Total Bilirubin AST ALT Alkaline Phosphatase Creatine Kinase Creatine Kinase Index CK-MB (CK-2) Troponin I Total Protein Albumin Urine Color Urine Appearance Urine pH Ur Specific Jackson Urine Protein Urine Glucose (UA) Urine Ketones Urine Blood Urine Nitrite Urine Bilirubin Urine Urobilinogen Ur Leukocyte Esterase Urine WBC (Auto) Urine RBC (Auto) Urine Casts (Auto) U Epithel Cells (Auto) Urine Bacteria (Auto) ASSESSMENT/PLAN: 88 YO F with PMH of CAD (CABG in 2018 and 2x stents in 2016), AFib (on Eliquis) , DM, HTN, and HLD. Presented to the ER with complaints of chest pain and blurry vision, with associated dizziness, light headedness, and nausea. She was admitted for suspected sepsis 2/2 meningitis. #Sepsis - Temp 102.6/WBC 16.2/Lactic Acid 2.8 - Source undetermined, but neurological symptoms (blurry vision, AMA) + sepsis raises suspicion of meningitis - Ceftriaxone + Vanco started for empiric antibacterial therapy - Ampicillin started as empiric therapy for Listeria (since patient is >50 years old) - Acyclovir started for antiviral empiric therapy - Neurology (Dr. Shore consulted for possible LP in AM, not done in ER over concerns of thrombocytopenia and home med Eliquis - CT Head showed evidence of chronic sinusitis, but no acute process - Neuro checks, fall precautions #Chest pain - EKG: sinus tachycardia with ST depressions in leads I,II,V5, and V6 - Trop 0.18, repeat ordered. May be elevated due to demand ischemia 2/2 sepsis - Tele monitoring - CT AP showed evidence of cholelithiasis and diverticulosis, but no acute process - Echo ordered to check for LV function and valvular dysfunction/vegetations ( endocarditis unlikely but will r/o due to fever + murmur) #Thrombocytopenia - Unexplained, will continue to monitor - US spleen #Hypokalemia - 3.3 - IV KCl ordered #Adrenal nodule - Left sided nodule, incidental finding on CT - Repeat CT in 3 months as outpatient recommended #Hx of DM - BGM/Novolog SS started #Hx of HTN - Will continue home meds once confirmed #Hx of Afib - Holding Eliqis for now since 1.LP tomorrow 2.Dose needs to be confirmed in the AM #FEN - Mg level ordered - Light hydration with N/S, will avoid aggressive hydration because of hx of #DVT PE - SCDs, ho;ding Eliquis for now since 1.LP tomorrow 2.Dose needs to be confirmed in the AM Visit type - Emergency Visit Emergency Visit: Yes ED Registration Date: 05/02/19 Care time: The patient presented to the Emergency Department on the above date and was hospitalized for further evaluation of their emergent condition. - New Patient This patient is new to me today: Yes Date on this admission: 05/03/19 - Critical Care Critical Care patient: No ATTENDING PHYSICIAN STATEMENT I saw and evaluated the patient. I reviewed the resident's note and discussed the case with the resident. I agree with the resident's findings and plan as documented. SUBJECTIVE: OBJECTIVE: ASSESSMENT AND PLAN:
[2019-05-03] MEDS ORDERED: DEXTROSE 5% IVPB ONE (02:45)
[2019-05-03] MEDS ORDERED: WATER IVPB ONE (02:45)
[2019-05-03] MEDS ORDERED: ACYCLOVIR IVPB ONE (02:45)
[2019-05-03] MEDS ORDERED: CEFTRIAXONE 2 GM/100 ML BAG IVPB ONE ×2 (02:53→18:04)
[2019-05-03] MEDS ORDERED: KCL 10 MEQ IVPB 10 MEQ/100 ML INFUS.BAG IVPB ONE ×2 (02:54→11:52)
[2019-05-03] MEDS: CEFTRIAXONE 2 GM in DEXTROSE 5%-WATER 100 ML IVPB SCH ×2 (03:23→18:05)
[2019-05-03 03:36] LABS: MAGNESIUM 1.5 mg/dL (1.8-2.4)
[2019-05-03] MEDS: KCL 10 MEQ IVPB 10 MEQ/100 ML INFUS.BAG IVPB SCH ×3 (04:38→17:15)
[2019-05-03] MEDS: AMPICILLIN NA/SULBACTAM NA 1.5 GM in SODIUM CHLORIDE 100 ML IVPB SCH (06:38)
[2019-05-03 07:03] LABS: HEMATOCRIT 34.7 % (32.4-45.2); HEMOGLOBIN 11.7 GM/dL (10.7-15.3); MCH 31.1 pg (25.7-33.7); MCHC 33.6 g/dl (32.0-36.0); MEAN CELL VOLUME 92.4 fl (80-96); MEAN PLT VOLUME 10.9 fl (7.5-11.1); PLATELET COUNT 102 K/MM3 (134-434); RBC 3.76 M/mm3 (3.60-5.2); RDW 13.9 % (11.6-15.6)
[2019-05-03 07:11] LABS: BLOOD UREA NITROGEN 14.7 mg/dL (7-18); CALCIUM 8.5 mg/dL (8.5-10.1); MAGNESIUM 1.6 mg/dL (1.8-2.4); POTASSIUM 3.5 mmol/L (3.5-5.1)
[2019-05-03] MEDS: INSULIN SLIDING SCALE (NOVOLOG) 1 VIAL SQ SCH ×2 (07:43→18:00)
--- NOTE | 2019-05-03 08:24 | EKG ---
Test Reason : Blood Pressure : / mmHG Vent. Rate : 115 BPM Atrial Rate : 115 BPM P-R Int : 124 ms QRS Dur : 092 ms QT Int : 328 ms P-R-T Axes : 017 022 090 degrees QTc Int : 453 ms SINUS TACHYCARDIA WITH PREMATURE SUPRAVENTRICULAR COMPLEXES NONSPECIFIC ST AND T WAVE ABNORMALITY ABNORMAL ECG WHEN COMPARED WITH ECG OF 08-DEC-2017 09:56, PREMATURE SUPRAVENTRICULAR COMPLEXES ARE NOW PRESENT VENT. RATE HAS INCREASED BY [address] NOW DEPRESSED IN LATERAL LEADS NONSPECIFIC T WAVE ABNORMALITY NOW EVIDENT IN INFERIOR LEADS T WAVE INVERSION NOW EVIDENT IN LATERAL LEADS Confirmed by LEXIE GARCIA, GEE ([id number]) on 05/03/2019 8:23:50 AM Referred By: Confirmed By:GEE OWEN MD
--- NOTE | 2019-05-03 08:54 | CON.NEURO ---
Consult - Past Medical History Cardio/Vascular: Yes: HTN, Hyperlipdemia - Past Surgical History Past Surgical History: Yes: Mastectomy (left) - Alcohol/Substance Use Hx Alcohol Use: No - Smoking History Smoking history: Former smoker Have you smoked in the past 12 months: No If you are a former smoker, when did you quit?: Over 40 years ago Home Medications - Allergies Allergies/Adverse Reactions: Allergies Allergy/AdvReac Type Severity Reaction Status Date / Time No Known Allergies Allergy Verified 12/08/17 01:30 - Home Medications Home Medications: Ambulatory Orders Aspirin [ASA -] 81 mg PO DAILY 02/26/14 Lisinopril [Zestril] 20 mg PO DAILY 02/26/14 Atorvastatin Ca [Lipitor] 80 mg PO HS 01/29/16 Clopidogrel Bisulfate [Plavix -] 75 mg PO DAILY 01/29/16 Diltiazem HCl [Diltiazem 24Hr ER] 120 mg PO DAILY 01/29/16 Insulin Glargine,Hum.rec.anlog [Tojuanjo Solkathy] 15 units SQ HS 01/29/16 Apixaban [Eliquis] BID 05/03/19 Metoprolol Succinate 05/03/19 Physical Exam-Neuro Vital Signs: Vital Signs Temperature 102.6 F H 05/02/19 17:57 Pulse Rate 76 05/03/19 03:27 Respiratory Rate 19 05/03/19 03:27 Blood Pressure 98/59 L 05/03/19 03:27 O2 Sat by Pulse Oximetry (%) 96 05/03/19 03:27 Labs: CBC, BMP 05/03/19 06:12 05/03/19 06:12 INR, PTT INR 1.60 (0.83-1.09) H 05/02/19 19:06 Assessment/Plan cc Confusion HPI 88 year old female history o This is a 88 year old female with PMH significant for CAD (CABG in 2018 and 2x stents in 2016), AFib (on Eliquis), DM, HTN, and HLD. She presented to hospital for chest pain, blurring of vision and confused. Patient is found to have fever of 102. Patient has histor of Atrial fibrillation and is on eliquis. She has been confused in ed and agitated. She is oriented x 1 as per nursing staff. There is no reported fall, seizure like activiity or hemiparesis, dysarthria or diplopia. She was given zosyn, vanco and ampicillin for meningitis coverage. She denies similar episode in past, she denies any headahce or LOC. PAST MEDICAL HISTORY: CAD (CABG in 2018 and 2x stents in 2016) DM: Does not monitor glucose at home, claims she has it under control. Takes 15 units of Toujeo in the evenings. 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 She states that she does not use a cane to ambulate. For transportation, she drives her car. Smoking: quit 40+ years ago Alcohol: none Drugs: none Family History: Mother had Brain CA Father had an [place] 2 sons have had MIs Allergies No Known Allergies Allergy (Verified 12/08/17 01:30) HOME MEDICATIONS: Home Medications Medication Instructions Recorded Aspirin [ASA -] 81 mg PO DAILY 02/26/14 Lisinopril [Zestril] 40 mg PO DAILY 02/26/14 Atorvastatin Ca [Lipitor] 40 mg PO HS 01/29/16 Clopidogrel Bisulfate [Plavix -] 75 mg PO DAILY 01/29/16 Diltiazem HCl [Diltiazem 24Hr ER] 120 mg PO DAILY 01/29/16 Insulin Glargine,Hum.rec.anlog 10 units SQ DAILY 01/29/16 [Toujeo Solostar] ROS, FH, SH reviewed in chart NEUROLOGICAL EXAMINATION Alert , follow simple command, oriented x 1, speech is normal, neck is supple. temp was 102 eomi, pupils reactive no face asymmetry moving all ext sensation is grossly normal reflex are diminished ct head Unremarkable Platelet 102 k Assessment/Plan Acute deliruim secondary to septicemia ( high wbc and fever), patient is being treated with abx, She denies any headache , and neck is supple. Clinically less likley to be Meningitis and cant rule out .Patient has relatively low platelet and was on ? eliquis Plan: Suggest ID, if strong suspician for LP . We can attempt to try lp at bed side or do under Fluro - Continue current level of care and abx - b12,folate tsh can be obtained and mri of brain can be obtained once stable Thanking you so much Nathan Shore MD
[2019-05-03] MEDS ORDERED: VANCOMYCIN 1 GM in D5W (PRE-DOCKED) 1,000 MG/250 ML IVPB SCH (10:00)
[2019-05-03] MEDS ORDERED: VANCOMYCIN 1 GRAM (PRE-DOCKED) 1,000 MG/250 ML BAG IVPB ONE (10:00)
--- NOTE | 2019-05-03 11:28 | EKG ---
Test Reason : Blood Pressure : / mmHG Vent. Rate : 090 BPM Atrial Rate : 090 BPM P-R Int : 138 ms QRS Dur : 092 ms QT Int : 372 ms P-R-T Axes : -23 019 008 degrees QTc Int : 455 ms NORMAL SINUS RHYTHM MODERATE VOLTAGE CRITERIA FOR LVH, MAY BE NORMAL VARIANT BORDERLINE ECG WHEN COMPARED WITH ECG OF 02-MAY-2019 17:29, PREMATURE SUPRAVENTRICULAR COMPLEXES ARE NO LONGER PRESENT ST NO LONGER DEPRESSED IN LATERAL LEADS T WAVE INVERSION NO LONGER EVIDENT IN LATERAL LEADS Confirmed by LEXIE GARCIA, GEE ([id number]) on 05/03/2019 11:27:55 AM Referred By: SHERLYN RUTH Confirmed By:GEE OWEN MD
[2019-05-03] MEDS ORDERED: SODIUM CHLORIDE 500 ML IV STA (12:46)
--- NOTE | 2019-05-03 13:25 | PN ---
Progress Note (short form) - Note Progress Note: ID consult dictated imp/reccd fever gram positive bacteremia-strep some confusion- appears to be improving per RN in ED no focus of infection head ct with mild sinusitis suggest continuing vancomycin and ceftriaxone (meningtis doses) d/c unasyn urinary pneumococcal antigen ordered LP when safe off eliquis f/u cultures f/u echo repeat blood cultures in am Problem List - Problems (1) Fever Code(s): R50.9 - FEVER, UNSPECIFIED (2) Bacteremia Code(s): R78.81 - BACTEREMIA (3) Confusion Code(s): R41.0 - DISORIENTATION, UNSPECIFIED
[2019-05-03] MEDS: SODIUM CHLORIDE 1,000 ML IV SCH (13:39)
--- NOTE | 2019-05-03 14:42 | PN ---
Teaching Attending Note Name of Resident: Jennifer Bryant ATTENDING PHYSICIAN STATEMENT I saw and evaluated the patient. I reviewed the resident's note and discussed the case with the resident. I agree with the resident's findings and plan as documented. SUBJECTIVE: limited history. Denies fever or chills, or DUEÑAS , or an y pain. No SOB OBJECTIVE: NAD, awake, knows her name, but not age, location or date MMM, no facial droop. slightly erythematous oropharynx but no exudate CV: RRR, 3/6 possibly diastolic murmur in LUSB and RUSB, with possible systolic murmur in LLSB . no radiation to carotids Abd: soft, TTP i n suprapubic area, no rebound tenderness or guarding Ext: trace edema , no erythema Lungs: CTAB Neuro: EOMi, round equal pupils, reactive to light , no facial droop, uvula and tongue at mid line. strength 5/5 in upper and lower extremities proximally and distally. sensation to light touch NL. reflexes 1+ R knee jerk and 2+ biceps b/ l and 2+ L knee jerk. ASSESSMENT AND PLAN: 88 y/o Lady with h/o a fib on eliquis, DM , HTN, CAD, s/p CABG, HL, brast cancer , s/p appendectomy who presented with fevwe, and AMS and CP 1- Sepsis with bacteremia: ? strep pneumo. unclear source. AMS could be due to the sepsis or due to MANAGER NEONATAL infection. oropharynx with no exudate, cxray wit no infiltrate . - cont Abx per ID - obtain CT of chest - will repeat blood cx in am - strep Ag sent, will follow - LP in 48 hours from last dose ( last dose yesterday am) - MRI of brain with gadolinium to evaluate the meningies and brain paranchyma - US reviewed - give IVF - repeat lactate 2- AMS, encephalopathy . unclear etiology yet 3- H/o A fib: - hold eliquis for now, pending LP - hold metoprolol due to hypotension 4- CP with elevated trop: ? demand in setting of sepsis. ST depression in lateral leads was likely due to tachycardia. resolved with improvement in heart rate. - trend trop - card - tele 5- Dm : septic and poor po intake . sugar is not that elevated. - decrease HS dose of levemir to 10 - dc HS coverage of SSI 6- HTN: hold BB and lisinopril due to hypotension 7- DVT PX: SCDs, and hold AC for LP
--- NOTE | 2019-05-03 15:06 | CONS ---
DATE OF CONSULTATION: DATE OF DICTATION: 05/03/2019 CONSULTATION REQUESTED BY: Hospitalist Service. HISTORY OF PRESENT ILLNESS: This is an 88-year-old woman who lives independently in the community. She was returning home yesterday afternoon when she got of her car and walking to her co-op when her co-op neighbor noted that she appeared unsteady and they called EMS. She apparently had some chest pain and vision changes as well. She came to the emergency room where she was noted to be weak. She states her vision changes had resolved and she was evaluated in the ER where she was noted to be confused. She had a fever of 102.6. She had cultures drawn and she had a head CT. They were unable to do an LP because she was on Eliquis. She was given vancomycin, Zosyn, acyclovir and later ampicillin sulbactam in the emergency room. I am asked to see her for further evaluation. Of note, she was also started on ceftriaxone. Of note blood cultures drawn from yesterday evening this morning are positive for gram-positive cocci in pairs. The patient's mental status per the ER nurse has improved. She knows her name. She knows where she is. She is able to follow simple commands. She denies any headache. She denies any visual changes. She states her throat is dry and she would like to drink some water. She denies any dysuria, stomach pain, nausea, vomiting or diarrhea. She denies any travel. PAST MEDICAL HISTORY: Notable for a history of diabetes. She had a bypass in 2018. She has a history of breast cancer and is status post mastectomy. She has a history of atrial fibrillation on Eliquis, hypertension and hyperlipidemia. She is unable to tell me who her PMD is. PAST SURGICAL HISTORY: Also includes appendectomy 40 years ago and she has had surgery on her right femur over 40 years ago. SOCIAL HISTORY: She lives in a co-op. She drives her own car. She stopped smoking 40 years ago. There is no history of alcohol or drug use. She has had 2 sons and she is . FAMILY HISTORY: Notable for brain cancer in her father. Father had an MN. Her 2 sons have had MIs. ALLERGIES: No known drug allergies. MEDICATIONS AT HOME: Include aspirin, lisinopril, atorvastatin, Plavix, diltiazem and insulin. REVIEW OF SYSTEMS: Is as per HPI. She actually has no complaints. PHYSICAL EXAMINATION:General: She is awake and alert. Vital Signs: She is afebrile. Her pulse is 76. Her blood pressure is 98/59. Respiratory rate is 19. She is saturating 96% on room air. HEENT: She is normocephalic. Her eyes are anicteric. She has no thrush. She has no conjunctival hemorrhage in her eyes as well. Neck: Supple. No nuchal rigidity. Lungs: Clear to auscultation. Heart: Regular rate and rhythm. She has a 2/6 systolic ejection murmur. Abdomen: Soft. It is distended. I suspect she has a palpable bladder. Extremities: Without edema. Skin: She has no skin rash. STUDIES: White count on admission was 16, this morning 14,000, hemoglobin 11.7, platelets 102. INR is 1.6. BUN 14, creatinine 1.0 with a lactic acid of 3.2. Troponin is 0.32. LFTs are notable for AST of 38, ALT 32, alkaline phosphatase of 85. Lactic acid was 4.4 on admission and is now 3.2. Her urinalysis has 1+ glucose, 4 white cells and urine and blood cultures are pending. Blood cultures are growing gram-positive cocci in pairs. She has had multiple imaging studies. She has a chest, abdomen and pelvis CT. There is no evidence of any acute infiltrate. She is status post sternotomy, status post left mastectomy. She has a 0.4 x 0.2 cm left upper lobe pulmonary nodule. CAT scan of the abdomen and pelvis is notable for extensive atherosclerotic vascular calcifications. She has probable cholelithiasis, a left adrenal nodule. Head CT notable for no acute pathology. She does have paranasal sinus disease that is mild to moderate. IN SUMMARY: This is an 88-year-old woman admitted with fever, gram-positive bacteremia and some confusion which appears to be improving. She has no focus of infection for her bacteremia. Head CT has some mild sinusitis. I would suggest continuing vancomycin and ceftriaxone at meningitis doses. Urine pneumococcal antigen has been ordered. Would discontinue the Unasyn. Suggest obtaining an LP when safe off of the Eliquis. Would follow up cultures. Would follow up the echocardiogram and repeat blood cultures in the morning. Further recommendations to follow. KELSIE WILSON M.D. CHRIS/[id number]
--- NOTE | 2019-05-03 16:20 | PN ---
Physical Exam: SUBJECTIVE: Patient seen and examined at the bedside. Was AOx2, to self and general location (hospital). Patient was not able to give any history or state why she came to the hospital. OBJECTIVE: Vital Signs Period Temp Pulse Resp BP Sys/Phelps Pulse Ox Last 24 Hr 97.8 F-102.6 F 73-120 16-24 98-140/59-88 95-97 GENERAL: AOx2, but struggles to recall any events, cannot state why she is hospitalized, denied past surgical history despite obvious surgical scars. HEAD: Normal with no signs of trauma. EYES: Pupils equal, round and reactive to light, extraocular movements intact, sclera anicteric, conjunctiva clear. No lid lag. EARS, NOSE, THROAT: Ears normal, nares patent, oropharynx mildly erythematous but clear without exudates. Moist mucous membranes. NECK: Normal range of motion, supple without lymphadenopathy. LUNGS: Breath sounds equal, clear to auscultation bilaterally. No accessory muscle use. HEART: Regular rate and rhythm, S1 and S2, soft diastolic? murmur at 2nd intercostal space, on L sternal border. ABDOMEN: Soft, tender to palpation in suprapubic area, not distended, normoactive bowel sounds, no guarding, no rebound, no masses. MUSCULOSKELETAL: Normal range of motion at all joints. No bony deformities or tenderness. UPPER EXTREMITIES: 2+ pulses, warm, well-perfused. No cyanosis. No clubbing. LOWER EXTREMITIES: mild tenderness to palpation NEUROLOGICAL: Cranial nerves II-XII intact. Normal speech. Strength UE: 5/5 B/ L LE: 5/5 B/L Sensations UE : intact LE: intact SKIN: Warm, dry, normal turgor, no rashes or lesions noted. Laboratory Results - last 24 hr 05/02/19 05/02/19 05/02/19 19:00 19:06 19:06 WBC 16.2 H RBC 4.43 Hgb 13.5 Hct 40.4 D MCV 91.2 MCH 30.5 MCHC 33.5 RDW 13.8 Plt Count 126 L D MPV 10.9 Absolute Neuts (auto) 15.1 H Total Counted 100 Neutrophils % 93.1 H Neutrophils % (Manual) 90.7 H Band Neutrophils % 2.1 Lymphocytes % 2.7 L D Lymphocytes % (Manual) 2.1 L Monocytes % 3.9 Monocytes % (Manual) 4 Eosinophils % 0.0 D Eosinophils % (Manual) 0.0 Basophils % 0.3 Basophils % (Manual) 0.0 Myelocytes % (Man) 0 Promyelocytes % (Man) 0 Blast Cells % (Manual) 0 Nucleated RBC % 0 Metamyelocytes 1 Platelet Estimate Decreased Platelet Comment Present PT with INR INR PTT (Actin FS) 33.8 VBG pH POC VBG pCO2 POC VBG pO2 VBG HCO3 VBG O2 Sat (Betty) VBG Base Excess Sodium Potassium Chloride Carbon Dioxide Anion Gap BUN Creatinine Est GFR (CKD-EPI)AfAm Est GFR (CKD-EPI)NonAf POC Glucometer Random Glucose Lactic Acid 2.8 H* Calcium Magnesium Total Bilirubin AST ALT Alkaline Phosphatase Creatine Kinase Creatine Kinase Index CK-MB (CK-2) Troponin I Total Protein Albumin Vitamin B12 Serum Folate TSH Urine Color Urine Appearance Urine pH Ur Specific [place] Urine Protein Urine Glucose (UA) Urine Ketones Urine Blood Urine Nitrite Urine Bilirubin Urine Urobilinogen Ur Leukocyte Esterase Urine WBC (Auto) Urine RBC (Auto) Urine Casts (Auto) U Epithel Cells (Auto) Urine Bacteria (Auto) 05/02/19 05/02/19 05/02/19 19:06 19:06 19:20 WBC RBC Hgb Hct MCV MCH MCHC RDW Plt Count MPV Absolute Neuts (auto) Total Counted Neutrophils % Neutrophils % (Manual) Band Neutrophils % Lymphocytes % Lymphocytes % (Manual) Monocytes % Monocytes % (Manual) Eosinophils % Eosinophils % (Manual) Basophils % Basophils % (Manual) Myelocytes % (Man) Promyelocytes % (Man) Blast Cells % (Manual) Nucleated RBC % Metamyelocytes Platelet Estimate Platelet Comment PT with INR 19.00 H INR 1.60 H PTT (Actin FS) VBG pH POC VBG pCO2 POC VBG pO2 VBG HCO3 VBG O2 Sat (Betty) VBG Base Excess Sodium 136 Potassium 3.3 L Chloride 101 Carbon Dioxide 25 Anion Gap 10 BUN 17.6 Creatinine 1.1 Est GFR (CKD-EPI)AfAm 52.65 Est GFR (CKD-EPI)NonAf 45.42 POC Glucometer Random Glucose 169 H Lactic Acid Calcium 9.6 Magnesium 1.5 L Total Bilirubin 0.8 AST 38 H ALT 32 Alkaline Phosphatase 85 Creatine Kinase 160 Creatine Kinase Index 0.7 CK-MB (CK-2) 1.2 Troponin I 0.18 H Total Protein 7.5 Albumin 3.5 Vitamin B12 Serum Folate TSH Urine Color Yellow Urine Appearance Clear Urine pH 5.0 Ur Specific [place] 1.017 Urine Protein Negative Urine Glucose (UA) Negative Urine Ketones 1+ H Urine Blood Negative Urine Nitrite Negative Urine Bilirubin Negative Urine Urobilinogen 0.2 Ur Leukocyte Esterase 1+ H Urine WBC (Auto) 4 Urine RBC (Auto) 2 Urine Casts (Auto) 12 U Epithel Cells (Auto) 2.4 Urine Bacteria (Auto) 3.4 05/02/19 05/03/19 05/03/19 19:20 03:14 03:14 WBC RBC Hgb Hct MCV MCH MCHC RDW Plt Count MPV Absolute Neuts (auto) Total Counted Neutrophils % Neutrophils % (Manual) Band Neutrophils % Lymphocytes % Lymphocytes % (Manual) Monocytes % Monocytes % (Manual) Eosinophils % Eosinophils % (Manual) Basophils % Basophils % (Manual) Myelocytes % (Man) Promyelocytes % (Man) Blast Cells % (Manual) Nucleated RBC % Metamyelocytes Platelet Estimate Platelet Comment PT with INR INR PTT (Actin FS) VBG pH 7.44 H POC VBG pCO2 36.0 L POC VBG pO2 < 49 H VBG HCO3 23.9 VBG O2 Sat (Betty) 49.4 L VBG Base Excess 0.5 Sodium Potassium Chloride Carbon Dioxide Anion Gap BUN Creatinine Est GFR (CKD-EPI)AfAm Est GFR (CKD-EPI)NonAf POC Glucometer Random Glucose Lactic Acid 4.4 H* Calcium Magnesium Total Bilirubin AST ALT Alkaline Phosphatase Creatine Kinase 21 L Creatine Kinase Index CK-MB (CK-2) Troponin I 0.09 H Total Protein Albumin Vitamin B12 224 Serum Folate 3 L TSH 0.17 L Urine Color Urine Appearance Urine pH Ur Specific [place] Urine Protein Urine Glucose (UA) Urine Ketones Urine Blood Urine Nitrite Urine Bilirubin Urine Urobilinogen Ur Leukocyte Esterase Urine WBC (Auto) Urine RBC (Auto) Urine Casts (Auto) U Epithel Cells (Auto) Urine Bacteria (Auto) 05/03/19 05/03/19 05/03/19 06:12 06:12 07:41 WBC 14.0 H RBC 3.76 Hgb 11.7 Hct 34.7 MCV 92.4 MCH 31.1 MCHC 33.6 RDW 13.9 Plt Count 102 L MPV 10.9 Absolute Neuts (auto) Total Counted Neutrophils % Neutrophils % (Manual) Band Neutrophils % Lymphocytes % Lymphocytes % (Manual) Monocytes % Monocytes % (Manual) Eosinophils % Eosinophils % (Manual) Basophils % Basophils % (Manual) Myelocytes % (Man) Promyelocytes % (Man) Blast Cells % (Manual) Nucleated RBC % Metamyelocytes Platelet Estimate Platelet Comment PT with INR INR PTT (Actin FS) VBG pH POC VBG pCO2 POC VBG pO2 VBG HCO3 VBG O2 Sat (Betty) VBG Base Excess Sodium 138 Potassium 3.5 Chloride 104 Carbon Dioxide 24 Anion Gap 9 BUN 14.7 Creatinine 1.0 Est GFR (CKD-EPI)AfAm 59.08 Est GFR (CKD-EPI)NonAf 50.97 POC Glucometer 129 Random Glucose 148 H Lactic Acid Calcium 8.5 Magnesium 1.6 L Total Bilirubin AST ALT Alkaline Phosphatase Creatine Kinase 159 Creatine Kinase Index 0.8 CK-MB (CK-2) 1.3 Troponin I 0.32 H Total Protein Albumin Vitamin B12 Serum Folate TSH Urine Color Urine Appearance Urine pH Ur Specific [place] Urine Protein Urine Glucose (UA) Urine Ketones Urine Blood Urine Nitrite Urine Bilirubin Urine Urobilinogen Ur Leukocyte Esterase Urine WBC (Auto) Urine RBC (Auto) Urine Casts (Auto) U Epithel Cells (Auto) Urine Bacteria (Auto) 05/03/19 05/03/19 05/03/19 08:18 10:13 13:20 WBC RBC Hgb Hct MCV MCH MCHC RDW Plt Count MPV Absolute Neuts (auto) Total Counted Neutrophils % Neutrophils % (Manual) Band Neutrophils % Lymphocytes % Lymphocytes % (Manual) Monocytes % Monocytes % (Manual) Eosinophils % Eosinophils % (Manual) Basophils % Basophils % (Manual) Myelocytes % (Man) Promyelocytes % (Man) Blast Cells % (Manual) Nucleated RBC % Metamyelocytes Platelet Estimate Platelet Comment PT with INR INR PTT (Actin FS) VBG pH POC VBG pCO2 POC VBG pO2 VBG HCO3 VBG O2 Sat (Betty) VBG Base Excess Sodium Potassium Chloride Carbon Dioxide Anion Gap BUN Creatinine Est GFR (CKD-EPI)AfAm Est GFR (CKD-EPI)NonAf POC Glucometer 144 Random Glucose Lactic Acid 3.2 H* Calcium Magnesium Total Bilirubin AST ALT Alkaline Phosphatase Creatine Kinase Creatine Kinase Index CK-MB (CK-2) Troponin I 0.45 H Total Protein Albumin Vitamin B12 Serum Folate TSH Urine Color Urine Appearance Urine pH Ur Specific [place] Urine Protein Urine Glucose (UA) Urine Ketones Urine Blood Urine Nitrite Urine Bilirubin Urine Urobilinogen Ur Leukocyte Esterase Urine WBC (Auto) Urine RBC (Auto) Urine Casts (Auto) U Epithel Cells (Auto) Urine Bacteria (Auto) Active Medications Generic Name Dose Route Start Last Admin Trade Name Alice PRN Reason Stop Dose Admin Ceftriaxone Sodium 2 gm/ 100 mls @ 200 mls/hr 05/03/19 02:15 05/03/19 03:23 Dextrose IVPB 05/04/19 02:14 200 mls/hr Q12H STEPHANIE Administration Sodium Chloride 1,000 mls @ 100 mls/hr 05/03/19 09:49 05/03/19 13:39 Normal Saline - IV 100 mls/hr ASDIR STEPHANIE Administration Insulin Aspart 1 vial 05/03/19 16:30 Novolog Vial Sliding Scale - SQ TIDAC [facility] Protocol Insulin Detemir 10 units 05/03/19 22:00 Levemir Vial SQ HS STEPHANIE Vancomycin HCl 1,000 mg 05/04/19 01:00 Vancomycin (Pre-Docked) IVPB BID@0100,1300 [facility] ASSESSMENT/PLAN: 88 YO F with PMH of CAD (CABG in 2018 and 2x stents in 2016), AFib (on Eliquis) , DM, HTN, and HLD. Presented to the ER with complaints of chest pain and blurry vision, with associated dizziness, light headedness, and nausea. She was admitted for suspected sepsis 2/2 meningitis. #Sepsis - blood cx growing gram + cocci in pairs, AMS due to sepsis vs. FILE CLERK infection - On admission Temp 102.6/WBC 16.2/Lactic Acid 2.8 - LA 2.8> 4.4> 1.7 - Continue Ceftriaxone + Vancomycin for empiric antibacterial therapy - repeat blood cultures tomorrow - Neurology (Dr. Shore consulted for possible LP), will follow up - CT Head showed evidence of chronic sinusitis, but no acute process - Will obtain CT chest to r/o PNA as source of infection - F/U strep Ag - Neuro checks, fall precautions - Continue IVF NS 100cc/hr #Chest pain - EKG: sinus tachycardia with ST depressions in leads I,II,V5, and V6 > Repeat EKG showing sinus rhythm and resolution of ST depressions - Trop 0.18 > 0.32 >0.45, will continue to trend, may be 2/2 demand ischemia - Tele monitoring - CT AP showed evidence of cholelithiasis and diverticulosis, but no acute process - Echo ordered to check for LV function and valvular dysfunction/vegetations ( endocarditis unlikely but will r/o due to fever + murmur) - Cardiology consulted, appreciate recommendations -holding home steve, bb due to sepsis/low bp # Hx of Afib - hold eliquis for now, pending LP - hold metoprolol due to hypotension > resume bb when bp improves # Hx of HTN - hold BB and lisinopril due to hypotension # Hx of HLD: - holding statin due to elevated lfts # DM with sepsis - decreased HS dose of levemir to 10 #DVT PE - SCDs, holding Eliquis for LP #FEN - NS 100cc/r - Replete lytes PRN - Diabetic diet Visit type - Emergency Visit Emergency Visit: Yes ED Registration Date: 05/02/19 Care time: The patient presented to the Emergency Department on the above date and was hospitalized for further evaluation of their emergent condition. - New Patient This patient is new to me today: Yes Date on this admission: 05/03/19 - Critical Care Critical Care patient: No - Discharge Referral Referred to [facility] Med [facility] No ATTENDING PHYSICIAN STATEMENT I saw and evaluated the patient. I reviewed the resident's note and discussed the case with the resident. I agree with the resident's findings and plan as documented. SUBJECTIVE: OBJECTIVE: ASSESSMENT AND PLAN:
--- NOTE | 2019-05-03 17:06 | CON.CARD ---
Cardiology Consult (text) - Consultation Consultation Note: cc: cp hpi: 88 f hx cad s/p pci, nstemi, cabg 2018, dm, htn, hld, pafib, here with dizzy, blurry vision, weakness. Denies cp, sob palps loc pnd orthopnea le edema. Found to have fever, sepsis. Sees dr wang for cardio. pmh; per hpi psh: appendectomy social: ex tob ros: per hpi; all others nl fam: nc meds: Home Medications Medication Instructions Recorded Aspirin [ASA -] 81 mg PO DAILY 02/26/14 Lisinopril [Zestril] 20 mg PO DAILY 02/26/14 Atorvastatin Ca [Lipitor] 80 mg PO HS 01/29/16 Clopidogrel Bisulfate [Plavix -] 75 mg PO DAILY 01/29/16 Diltiazem HCl [Diltiazem 24Hr ER] 120 mg PO DAILY 01/29/16 Insulin Glargine,Hum.rec.anlog 20 units SQ HS 01/29/16 [Touvanna Solosttawanda] Apixaban [Eliquis] 5 mg PO BID 05/03/19 Apixaban [Eliquis] BID 05/03/19 Metoprolol Succinate 1 tablet PO BID 05/03/19 pe: Vital Signs Period Temp Pulse Resp BP Sys/Phelps Pulse Ox Last 24 Hr 97.8 F-102.6 F 73-120 16-24 98-140/59-88 95-97 nad no jvd rrr s1s2 no mrg cta bl nl eff aaox3 no le edema bl, no c/c abd nt nd pos bs no jaundice diaphoresis pos dp pt no carotid bruits Laboratory Last Values WBC 14.0 K/mm3 (4.0-10.0) H 05/03/19 06:12 RBC 3.76 M/mm3 (3.60-5.2) 05/03/19 06:12 Hgb 11.7 GM/dL (10.7-15.3) 05/03/19 06:12 Hct 34.7 % (32.4-45.2) 05/03/19 06:12 MCV 92.4 fl (80-96) 05/03/19 06:12 MCH 31.1 pg (25.7-33.7) 05/03/19 06:12 MCHC 33.6 g/dl (32.0-36.0) 05/03/19 06:12 RDW 13.9 % (11.6-15.6) 05/03/19 06:12 Plt Count 102 K/MM3 (134-434) L 05/03/19 06:12 MPV 10.9 fl (7.5-11.1) 05/03/19 06:12 Absolute Neuts (auto) 15.1 K/mm3 (1.5-8.0) H 05/02/19 19:06 Total Counted 100 05/02/19 19:06 Neutrophils % 93.1 % (42.8-82.8) H 05/02/19 19:06 Neutrophils % (Manual) 90.7 % (42.8-82.8) H 05/02/19 19:06 Band Neutrophils % 2.1 % 05/02/19 19:06 Lymphocytes % 2.7 % (8-40) L D 05/02/19 19:06 Lymphocytes % (Manual) 2.1 % (8-40) L 05/02/19 19:06 Monocytes % 3.9 % (3.8-10.2) 05/02/19 19:06 Monocytes % (Manual) 4 % (3.8-10.2) 05/02/19 19:06 Eosinophils % 0.0 % (0-4.5) D 05/02/19 19:06 Eosinophils % (Manual) 0.0 % (0-4.5) 05/02/19 19:06 Basophils % 0.3 % (0-2.0) 05/02/19 19:06 Basophils % (Manual) 0.0 % (0-2.0) 05/02/19 19:06 Myelocytes % (Man) 0 % (0-2) 05/02/19 19:06 Promyelocytes % (Man) 0 % (0-2) 05/02/19 19:06 Blast Cells % (Manual) 0 % (0-0) 05/02/19 19:06 Nucleated RBC % 0 % (0-0) 05/02/19 19:06 Metamyelocytes 1 % (0-2) 05/02/19 19:06 Platelet Estimate Decreased 05/02/19 19:06 Platelet Comment Present 05/02/19 19:06 PT with INR 19.00 SEC (9.7-13.0) H 05/02/19 19:06 INR 1.60 (0.83-1.09) H 05/02/19 19:06 PTT (Actin FS) 33.8 SECONDS (25.2-36.5) 05/02/19 19:06 VBG pH 7.44 (7.31-7.41) H 05/02/19 19:20 POC VBG pCO2 36.0 mmHg (38-52) L 05/02/19 19:20 POC VBG pO2 < 49 mmHg (28-48) H 05/02/19 19:20 VBG HCO3 23.9 mmol/L (23-29) 05/02/19 19:20 VBG O2 Sat (Betty) 49.4 % (70-80) L 05/02/19 19:20 VBG Base Excess 0.5 meq/l (-2-2) 05/02/19 19:20 Sodium 138 mmol/L (136-145) 05/03/19 06:12 Potassium 3.5 mmol/L (3.5-5.1) 05/03/19 06:12 Chloride 104 mmol/L (98-107) 05/03/19 06:12 Carbon Dioxide 24 mmol/L (21-32) 05/03/19 06:12 Anion Gap 9 MMOL/L (8-16) 05/03/19 06:12 BUN 14.7 mg/dL (7-18) 05/03/19 06:12 Creatinine 1.0 mg/dL (0.55-1.3) 05/03/19 06:12 Est GFR (CKD-EPI)AfAm 59.08 05/03/19 06:12 Est GFR (CKD-EPI)NonAf 50.97 05/03/19 06:12 POC Glucometer 144 UNITS (80-120) 05/03/19 08:18 Random Glucose 148 mg/dL (74-106) H 05/03/19 06:12 Lactic Acid 1.7 mmol/L (0.4-2.0) 05/03/19 16:00 Calcium 8.5 mg/dL (8.5-10.1) 05/03/19 06:12 Magnesium 1.6 mg/dL (1.8-2.4) L 05/03/19 06:12 Total Bilirubin 0.8 mg/dL (0.2-1) 05/02/19 19:06 AST 38 U/L (15-37) H 05/02/19 19:06 ALT 32 U/L (13-61) 05/02/19 19:06 Alkaline Phosphatase 85 U/L (45-117) 05/02/19 19:06 Creatine Kinase 159 U/L (26-192) 05/03/19 06:12 Creatine Kinase Index 0.8 % (0.0-5.0) 05/03/19 06:12 CK-MB (CK-2) 1.3 ng/mL (0.5-3.6) 05/03/19 06:12 Troponin I 0.45 ng/ml (0.00-0.05) H 05/03/19 13:20 Total Protein 7.5 g/dl (6.4-8.2) 05/02/19 19:06 Albumin 3.5 g/dl (3.4-5.0) 05/02/19 19:06 Vitamin B12 224 pg/ml (193-986) 05/03/19 03:14 Serum Folate 3 ng/mL (3.1-17.5) L 05/03/19 03:14 TSH 0.17 uIU/ml (0.358-3.74) L 05/03/19 03:14 Urine Color Yellow 05/02/19 19:20 Urine Appearance Clear 05/02/19 19:20 Urine pH 5.0 (5.0-8.0) 05/02/19 19:20 Ur Specific [place] 1.017 (1.010-1.035) 05/02/19 19:20 Urine Protein Negative (NEGATIVE) 05/02/19 19:20 Urine Glucose (UA) Negative (NEGATIVE) 05/02/19 19:20 Urine Ketones 1+ (NEGATIVE) H 05/02/19 19:20 Urine Blood Negative (NEGATIVE) 05/02/19 19:20 Urine Nitrite Negative (NEGATIVE) 05/02/19 19:20 Urine Bilirubin Negative (NEGATIVE) 05/02/19 19:20 Urine Urobilinogen 0.2 mg/dL (0.2-1.0) 05/02/19 19:20 Ur Leukocyte Esterase 1+ (NEGATIVE) H 05/02/19 19:20 Urine WBC (Auto) 4 /hpf (0-5) 05/02/19 19:20 Urine RBC (Auto) 2 /hpf (0-4) 05/02/19 19:20 Urine Casts (Auto) 12 /lpf (0-8) 05/02/19 19:20 U Epithel Cells (Auto) 2.4 /HPF (0-5/HPF) 05/02/19 19:20 Urine Bacteria (Auto) 3.4 /hpf (NEGATIVE) 05/02/19 19:20 ecg: sr, lvh, no ischemic changes ct chest: no chf, no pna echo 01/2019: nl lv/rv, lae, mild-mod mr, mod as, mild -mod ms a/p: 88 f hx cad s/p pci, nstemi, cabg 2017, dm, htn, hld, pafib, here with dizzy, blurry vision, weakness. sepsis: -infectious w/u in progress -abx per ID -bp low, agree with ivfs for now -tele monitoring cad, cabg: -mild trop elevation with flat trend and nl ck, not c/w acs, more likely demand from sepsis -ecg w/o acute changes -holding home steve, bb due to sepsis/low bp pafib: -in sr -resume bb when bp improves -was on eliquis 5 bid at home, holding for LP htn: -holding home steve, bb due to sepsis/low bp hld: -holding statin due to elevated lfts as: -mod on recent echo -hold home lasix due to sepsis, low bp -no signs chf
--- NOTE | 2019-05-03 20:23 | ECHO ---
Version: 1 Name: MAUDE BRIGHT Exam: Adult Echocardiogram Study Date: 05/03/2019, 10:59 AM Age: 88 Years MMode/2D Measurements & Calculations IVSd: 1.08 cm LVIDs: 2.5 cm LVIDd: 3.4 cm LVPWd: 1.03 cm LVOT diam: 2.02 cm Ao root diam: 2.9 cm LA dimension: 4.0 cm Doppler Measurements & Calculations MV E max chepe: 154.0 cm/sec Med E/e': 32.2 MV A max chepe: 171.6 cm/sec Med Peak E' Chepe: 4.8 cm/sec MV E/A: 0.90 Lat E/e': 17.1 Lat Peak E' Chepe: 9.0 cm/sec MR max P.3 mmHg Ao max P.6 mmHg Ao mean P.4 mmHg Ao V2 max: 242.3 cm/sec TR max chepe: 243.0 cm/sec TR max P.6 mmHg Procedure The study was technically difficult with many images being suboptimal in quality. Left Ventricle The left ventricular size, thickness and function are normal. The left ventricle is not well visuali zed. The left ventricular ejection fraction is normal. Regional wall motion abnormalities cannot be excluded due to limited visualization. Right Ventricle The right ventricle is not well visualized. Atria The left atrium is mildly dilated. The right atrium is mildly dilated. Mitral Valve There is moderate mitral valve thickening. There is moderate mitral annular calcification. There is severe mitral stenosis. There is mild to moderate mitral regurgitation. Tricuspid Valve There is mild to moderate tricuspid valve thickening. There is no tricuspid stenosis. There is mild tricuspid regurgitation. Right ventricular systolic pressure is normal. Aortic Valve The aortic valve is not well visualized. There is moderate aortic valve thickening. There is moderat e aortic sclerosis.;. Mild valvular aortic stenosis. No aortic regurgitation is present. Pulmonic Valve The pulmonic valve is not well visualized. Trace pulmonic valvular regurgitation. Great Vessels The aortic root is normal size. Pericardium/Pleura There is no pleural effusion. Summary Statements The study was technically difficult with many images being suboptimal in quality. The left atrium is mildly dilated. The right atrium is mildly dilated. The left ventricular size, thickness and function are normal The left ventricular ejection fraction is normal. The left ventricle is not well visualized. Regional wall motion abnormalities cannot be excluded due to limited visualization. Trace pulmonic valvular regurgitation. There is moderate mitral valve thickening. There is mild to moderate mitral regurgitation. There is mild tricuspid regurgitation. Right ventricular systolic pressure is normal. The aortic valve is not well visualized. There is moderate aortic valve thickening. There is moderate aortic sclerosis.; Mild valvular aortic stenosis. There is severe mitral stenosis. There is moderate mitral annular calcification. MD Bk Mars 05/03/2019, 7:22 PM Ordering Physician: Kush Boudreaux Performed By: Helga Warner
[2019-05-03] MEDS ORDERED: INSULIN (LEVEMIR) 100 UNITS/ML UNITS SQ SCH (22:00)
[2019-05-03] MEDS: INSULIN (LEVEMIR) 100 UNITS/ML UNITS SQ SCH (22:39)
[2019-05-04] MEDS ORDERED: VANCOMYCIN 1 GM in D5W (PRE-DOCKED) 1,000 MG/250 ML IVPB SCH ×2 (01:00→13:00)
[2019-05-04] MEDS: INSULIN SLIDING SCALE (NOVOLOG) 1 VIAL SQ SCH ×4 (06:50→23:38)
[2019-05-04] MEDS ORDERED: DEXTROSE 5%-WATER 100 ML IVPB ONE (08:21)
[2019-05-04 08:37] LABS: HEMATOCRIT 30.4 % (32.4-45.2); HEMOGLOBIN 10.7 GM/dL (10.7-15.3); MCH 31.6 pg (25.7-33.7); MCHC 35.2 g/dl (32.0-36.0); MEAN CELL VOLUME 89.7 fl (80-96); MEAN PLT VOLUME 10.6 fl (7.5-11.1); PLATELET COUNT 93 K/MM3 (134-434); RBC 3.39 M/mm3 (3.60-5.2); RDW 14.3 % (11.6-15.6); WHITE BLOOD COUNT 9.1 K/mm3 (4.0-10.0)
[2019-05-04 09:04] LABS: CALCIUM 7.9 mg/dL (8.5-10.1); CREATININE 0.7 mg/dL (0.55-1.3); MAGNESIUM 1.7 mg/dL (1.8-2.4)
[2019-05-04 09:07] LABS: POTASSIUM 2.9 mmol/L (3.5-5.1)
[2019-05-04] MEDS ORDERED: PT OWN MED DRAWER 7, Y5N ONE (09:09)
[2019-05-04] MEDS ORDERED: KCL 10 MEQ IVPB 10 MEQ/100 ML INFUS.BAG IVPB SCH (09:30)
[2019-05-04] MEDS ORDERED: POTASSIUM CHLORIDE TABS 20 MEQ TABLET.ER (FP) PO ONE ×2 (09:45→14:45)
[2019-05-04] MEDS ORDERED: CEFTRIAXONE 2 GM in DEXTROSE 5%-WATER 100 ML IVPB SCH (10:00)
[2019-05-04] MEDS ORDERED: POTASSIUM PHOSPHATE 30 MM in SODIUM CHLORIDE 500 ML IVPB ONE (10:00)
--- NOTE | 2019-05-04 11:18 | PN ---
Progress Note (short form) - Note Progress Note: s: no cp sob palps dizzy Current Medications Generic Name Dose Route Start Last Admin Trade Name Alice PRN Reason Stop Dose Admin Sodium Chloride 1,000 mls @ 100 mls/hr 05/03/19 09:49 05/03/19 13:39 Normal Saline - IV 100 mls/hr ASDIR STEPHANIE Administration Ceftriaxone Sodium 2 gm/ 100 mls @ 200 mls/hr 05/04/19 10:00 05/04/19 09:24 Dextrose IVPB 200 mls/hr BID STEPHANIE Administration Protocol Potassium Phosphate 30 mm/ 510 mls @ 63.75 mls/hr 05/04/19 10:00 Sodium Chloride IVPB 05/04/19 17:59 ONCE ONE 30 MM/8 HR Insulin Aspart 1 vial 05/03/19 16:30 05/04/19 06:50 Novolog Vial Sliding Scale - SQ Not Given TIDAC STEPHANIE Protocol Insulin Detemir 10 units 05/03/19 22:00 05/03/19 22:39 Levemir Vial SQ 10 unit HS STEPHANIE Administration Vancomycin HCl 1,000 mg 05/04/19 01:00 05/04/19 01:14 Vancomycin (Pre-Docked) IVPB 1,000 mg BID@0100,1300 STEPHANIE Administration Vital Signs Period Temp Pulse Resp BP Sys/Phelps Pulse Ox Last 24 Hr 97.8 F-99.2 F 69-90 16-24 98-137/62-75 94-95 nad no jvd rrr s1s2 no mrg cta bl nl eff aaox3 no le edema bl, no c/c abd nt nd pos bs no jaundice diaphoresis CBC, BMP 05/04/19 07:25 05/04/19 07:25 ecg: sr, lvh, no ischemic changes ct chest: no chf, no pna echo 01/2019: nl lv/rv, lae, mild-mod mr, mod as, mild-mod ms tele: sr a/p: 88 f hx cad s/p pci, nstemi, cabg 2018, dm, htn, hld, pafib, here with dizzy, blurry vision, weakness. sepsis: -infectious w/u in progress, has +bld cxs -abx per ID cad, cabg: -mild trop elevation with flat trend and nl ck, not c/w acs, more likely demand from sepsis -ecg w/o acute changes -holding home steve, bb due to sepsis/low bp pafib: -in sr -resume bb when bp improves -was on eliquis 5 bid at home, holding for LP, if not planned then resume AC htn: -holding home steve, bb due to sepsis/low bp hld: -holding statin due to elevated lfts as: -mod on recent echo -hold home lasix due to sepsis, low bp -no signs chf
[2019-05-04] MEDS: SODIUM CHLORIDE 1,000 ML IV SCH ×2 (11:57→22:47)
--- NOTE | 2019-05-04 13:05 | PN ---
Teaching Attending Note Name of Resident: Tashia Barnes ATTENDING PHYSICIAN STATEMENT I saw and evaluated the patient. I reviewed the resident's note and discussed the case with the resident. I agree with the resident's findings and plan as documented. SUBJECTIVE: no fever last night, she has mild DUEÑAS, but she gets DUEÑAS at base line. no visual changes , or photophobia or neck pain or stiffness. no weakness, numbness or tingling. feels much better . No events OBJECTIVE: NAD, awake, knows her name, age , date, and president MMM, no facial droop. no neck stiffness. receded left upper tooth . CV: RRR, 3/6 diastolic murmur in LUSB and RUSB, with possible systolic murmur in LLSB . heard in back .no radiation to carotids Ext: trace edema, no erythema Lungs: CTAB Neuro: EOMi, round equal pupils, reactive to light , no facial droop, uvula and tongue at mid line. strength 5/5 in upper and lower extremities proximally and distally. sensation to light touch NL. ASSESSMENT AND PLAN: 88 y/o Lady with h/o a fib on eliquis, DM , HTN, CAD, s/p CABG, HL, brast cancer , s/p appendectomy who presented with fevwe, and AMS and CP 1- Sepsis with Strep viridance bacteremia. source could be the mouth with poor dentition. can't r/o endocarditis as a result. echo with no vegetations. mental status improved and back to base line, no neck stiffness or photophobia, and normal neuro exam. - d/w Dr. Nguyen. cont vanco and ceftriaxone - since low suspicion for meningitis, will not perform LP. - MRI of brain with diaz pending, evaluate meninges and parancyma - repeat blood cx - not sure that LANDON sánchez change duration of abx treatment at this point, unless bacteremia persists - cont IVF - dental f/u at dc 2- Acute metabolic encephalopathy . resolved 3- H/o A fib: - will resume eliquis after MRI is done.hopefully this evening - resume metorpolol 4- CP with elevated trop: ? demand in setting of sepsis. - trop trended down. Echo with no WMA 5- Dm : cont HS levemir and SSI . if sugar remains on lower side throughout the day, can decrease HS levemir 6- HTN: cont to hold lisnopril 7- DVT PX: SCDs, eliquis as above
--- NOTE | 2019-05-04 13:28 | PN ---
Physical Exam: SUBJECTIVE: Patient seen and examined at the bedside. Her mental status has greatly improved since she began IV antibiotics. She is now AOx3 to self, location, and month but not year (stated it was 2009). She was able to recall some of the events prior to her hospitalization but couldn't really explain what symptoms she had on arrival and did not recall much of what happened yesterday. Spoke to patient's son yesterday who stated that his mother was in her usual state of health until yesterday afternoon when a neighbor noticed she appeared pale and ill and called an ambulance for her. OBJECTIVE: Vital Signs Period Temp Pulse Resp BP Sys/Phelps Pulse Ox Last 24 Hr 97.8 F-99.2 F 69-77 16-24 107-137/62-75 94-95 GENERAL: AOx3 HEAD: Normal with no signs of trauma. EYES: Pupils equal, round and reactive to light, extraocular movements intact, sclera anicteric, conjunctiva clear. No lid lag. EARS, NOSE, THROAT: Ears normal, nares patent, oropharynx mildly erythematous but clear without exudates. Moist mucous membranes. NECK: Normal range of motion, supple without lymphadenopathy. LUNGS: Breath sounds equal, clear to auscultation bilaterally. No accessory muscle use. HEART: Regular rate and rhythm, S1 and S2, soft diastolic murmur at 2nd intercostal space, on L sternal border. ABDOMEN: Soft, nontender to palpation, not distended, normoactive bowel sounds, no guarding, no rebound. MUSCULOSKELETAL: Normal range of motion at all joints. No bony deformities or tenderness. UPPER EXTREMITIES: 2+ pulses, warm, well-perfused. Non-pitting edema of the LUE which the patient notes is chronic s/p L sided mastectomy. LOWER EXTREMITIES: non-tender to palpation NEUROLOGICAL: Cranial nerves II-XII intact. Normal speech. Strength UE: 5/5 B/ L LE: 5/5 B/L Sensations UE : intact LE: intact SKIN: Warm, dry, normal turgor, no rashes or lesions noted. Laboratory Results - last 24 hr 05/03/19 05/03/19 05/03/19 13:20 16:00 17:22 WBC RBC Hgb Hct MCV MCH MCHC RDW Plt Count MPV Sodium Potassium Chloride Carbon Dioxide Anion Gap BUN Creatinine Est GFR (CKD-EPI)AfAm Est GFR (CKD-EPI)NonAf POC Glucometer 190 Random Glucose Lactic Acid 1.7 Calcium Phosphorus Magnesium Creatine Kinase Creatine Kinase Index CK-MB (CK-2) Troponin I 0.45 H 05/03/19 05/03/19 05/04/19 21:30 22:36 05:22 WBC RBC Hgb Hct MCV MCH MCHC RDW Plt Count MPV Sodium Potassium Chloride Carbon Dioxide Anion Gap BUN Creatinine Est GFR (CKD-EPI)AfAm Est GFR (CKD-EPI)NonAf POC Glucometer 128 109 Random Glucose Lactic Acid Calcium Phosphorus Magnesium Creatine Kinase 236 H Creatine Kinase Index 0.5 CK-MB (CK-2) 1.4 Troponin I 0.32 H 05/04/19 05/04/19 05/04/19 07:25 07:25 12:06 WBC 9.1 RBC 3.39 L Hgb 10.7 Hct 30.4 L MCV 89.7 MCH 31.6 MCHC 35.2 RDW 14.3 Plt Count 93 L MPV 10.6 Sodium 142 Potassium 2.9 L* Chloride 106 Carbon Dioxide 23 Anion Gap 12 BUN 12.0 Creatinine 0.7 Est GFR (CKD-EPI)AfAm 90.93 Est GFR (CKD-EPI)NonAf 78.45 POC Glucometer 145 Random Glucose 99 Lactic Acid Calcium 7.9 L Phosphorus 2.0 L Magnesium 1.7 L Creatine Kinase Creatine Kinase Index CK-MB (CK-2) Troponin I Active Medications Generic Name Dose Route Start Last Admin Trade Name Freq PRN Reason Stop Dose Admin Sodium Chloride 1,000 mls @ 100 mls/hr 05/03/19 09:49 05/04/19 11:57 Normal Saline - IV 100 mls/hr ASDIR STEPHANIE Administration Ceftriaxone Sodium 2 gm/ 100 mls @ 200 mls/hr 05/04/19 10:00 05/04/19 09:24 Dextrose IVPB 200 mls/hr BID STEPHANIE Administration Protocol Potassium Phosphate 30 mm/ 510 mls @ 63.75 mls/hr 05/04/19 10:00 05/04/19 10: 45 Sodium Chloride IVPB 05/04/19 17:59 63.75 mls/hr ONCE ONE Administration 30 MM/8 HR Vancomycin HCl 1,000 mg/ 250 mls @ 200 mls/hr 05/04/19 13:00 Dextrose IVPB Q12H STEPHANIE Protocol Insulin Aspart 1 vial 05/03/19 16:30 05/04/19 13:27 Novolog Vial Sliding Scale - SQ Not Given TIDAC [facility] Protocol Insulin Detemir 10 units 05/03/19 22:00 05/03/19 22:39 Levemir Vial SQ 10 unit HS [facility] Administration Metoprolol Succinate 25 mg 05/04/19 22:00 Toprol Xl - PO BID [facility] Vancomycin HCl 1,000 mg 05/04/19 13:00 Vancomycin (Pre-Docked) IVPB 05/05/19 01:01 BID@0100,1300 [facility] ASSESSMENT/PLAN: 88 YO F with PMH of CAD (CABG in 2018 and 2x stents in 2016), AFib (on Eliquis) , DM, HTN, and HLD. Presented to the ER with complaints of chest pain and blurry vision, with associated dizziness, light headedness, and nausea. She was admitted for suspected sepsis 2/2 meningitis. #Sepsis - blood cx growing strep mitis > most likely cause of AMS - LA 2.8> 4.4> 1.7 - Continue Ceftriaxone + Vancomycin for empiric antibacterial therapy - f/u repeat blood cultures - F/U strep Ag - F/U MRI brain - Neuro checks, fall precautions - Continue IVF NS 100cc/hr - will d/c plans for LP as patient is improving on IV abx, patient does not have other clinical signs of meningitis, and strep mitis is rarely a cause of bacterial meningitis - ID following, appreciate recommendations #Chest pain - EKG: sinus tachycardia with ST depressions in leads I,II,V5, and V6 > Repeat EKG showing sinus rhythm and resolution of ST depressions - Trop 0.18 > 0.32 >0.45 >0.32, resolving, most likely 2/2 demand ischemia - Tele monitoring - CT AP showed evidence of cholelithiasis and diverticulosis, but no acute process - Echo did not show any evidence of vegetations - Cardiology consulted, appreciate recommendations - resuming home metoprolol 25 mg PO BID as patients systolic bps back into the 140s # Hx of Afib - safe to resume eliquis after patient gets MRI - resuming metoprolol # Hx of HTN - resume metoprolol - continue to hold lisinopril # Hx of HLD: - holding statin due to elevated lfts # DM with sepsis -continue levemir to 10 #DVT PE - SCDs, will resume eliquis after MRI is done. #FEN - NS 100cc/r - Replete lytes PRN - Diabetic diet Visit type - Emergency Visit Emergency Visit: Yes ED Registration Date: 05/02/19 Care time: The patient presented to the Emergency Department on the above date and was hospitalized for further evaluation of their emergent condition. - New Patient This patient is new to me today: No - Critical Care Critical Care patient: No - Discharge Referral Referred to [facility] No ATTENDING PHYSICIAN STATEMENT I saw and evaluated the patient. I reviewed the resident's note and discussed the case with the resident. I agree with the resident's findings and plan as documented. SUBJECTIVE: OBJECTIVE: ASSESSMENT AND PLAN:
[2019-05-04 14:07] LABS: BLOOD UREA NITROGEN 11.6 mg/dL (7-18); CALCIUM 8.2 mg/dL (8.5-10.1); CREATININE 0.7 mg/dL (0.55-1.3); POTASSIUM 3.4 mmol/L (3.5-5.1)
--- NOTE | 2019-05-04 14:07 | PN ---
Progress Note (short form) - Note Progress Note: This is a 88 year old female with PMH significant for CAD (CABG in 2018 and 2x stents in 2016), AFib (on Eliquis), DM, HTN, and HLD. She presented to hospital for chest pain, blurring of vision and confused. Patient is found to have fever of 102. Patient has histor of Atrial fibrillation and is on eliquis. She has been confused in ed and agitated. She is oriented x 1 as per nursing staff. There is no reported fall, seizure like activiity or hemiparesis, dysarthria or diplopia. She was given zosyn, vanco and ampicillin for meningitis coverage. Patient has improved markedly. NEUROLOGICAL EXAMINATION Alert oriented x 3, speech is normal, neck is supple. eomi, pupils reactive no face asymmetry moving all ext sensation is grossly normal reflex are diminished ct head Unremarkable Assessment/Plan Acute deliruim secondary to septicemia ( high wbc and fever), possible source if Infective endocarditis. Less likley to be Meningitis. Hold Spinal tap. Plan: Continue current level of care, hold spinal tap for now, she is back to baseline -continue abx as per ID and PMD. Thanking you so much Nathan Shore MD
--- NOTE | 2019-05-04 15:57 | PN ---
Progress Note (short form) - Note Progress Note: alert feels improved has headache but reports freuient headaches at baseline Vital Signs Period Temp Pulse Resp BP Sys/Phelps Pulse Ox Last 24 Hr 97.8 F-99.2 F 69-90 16-24 107-149/62-88 94-95 partial uper dentures, left upper molars- broken tooth, +caries, no dental pain neck supple, no meningismus cor-rrr 2/6 karely lungs clear abd soft,nt ext no edema no rash +salvador CBC, BMP 05/04/19 07:25 05/04/19 13:24 Microbiology 05/03/19 18:15 Urine For Antigen Detection Legionella Antigen - Final 05/03/19 18:15 Urine For Antigen Detection Streptococcus pneumoniae Antigen (M - Final 05/02/19 19:06 Blood - Peripheral Venous Blood Culture - Preliminary Streptococcus Mitis 05/02/19 19:20 Urine - Urine Clean Catch Urine Culture - Final Strep Agalactiae Group B Normal Urogenital Janie 05/02/19 19:20 Blood - Peripheral Venous Blood Culture - Preliminary Streptococcus Viridans a/p fever/sepsis strep viridans bacteremia ?dental in origin, last dental visit over a year ago would get MRI no need for LP decrease rocephin to daily dosing continue vancomycin f/u cultures echo noted-+valvular heart disease afib +troponins d/c isolation Problem List - Problems (1) Fever Code(s): R50.9 - FEVER, UNSPECIFIED (2) Bacteremia Code(s): R78.81 - BACTEREMIA (3) Confusion Code(s): R41.0 - DISORIENTATION, UNSPECIFIED
[2019-05-04] MEDS: metoPROLOL SUCCINATE 25 MG TAB.SR.24H (FP) PO SCH (22:37)
[2019-05-04] MEDS: INSULIN (LEVEMIR) 100 UNITS/ML UNITS SQ SCH (22:45)
[2019-05-04] MEDS ORDERED: ACETAMINOPHEN 325 MG TABLET (FP) PO ONE (23:37)
[2019-05-04] MEDS: ACYCLOVIR IVPB SCH (23:38)
[2019-05-04] MEDS: DEXTROSE 5% IVPB SCH (23:38)
[2019-05-04] MEDS: WATER IVPB SCH (23:38)
[2019-05-04] MEDS: AMPICILLIN NA/SULBACTAM NA 1.5 GM in SODIUM CHLORIDE 100 ML IVPB SCH (23:38)
[2019-05-05] MEDS ORDERED: VANCOMYCIN 1 GRAM (PRE-DOCKED) 1,000 MG/250 ML BAG IVPB SCH (02:00)
[2019-05-05] MEDS: INSULIN SLIDING SCALE (NOVOLOG) 1 VIAL SQ SCH ×3 (06:08→17:16)
[2019-05-05 08:00] LABS: HEMATOCRIT 34.5 % (32.4-45.2); MCH 31.2 pg (25.7-33.7); MCHC 34.7 g/dl (32.0-36.0); MEAN CELL VOLUME 90.1 fl (80-96); MEAN PLT VOLUME 10.5 fl (7.5-11.1); PLATELET COUNT 101 K/MM3 (134-434); RBC 3.83 M/mm3 (3.60-5.2); RDW 14.2 % (11.6-15.6)
[2019-05-05 08:27] LABS: ALBUMIN 2.5 g/dl (3.4-5.0); BILIRUBIN,TOTAL 0.4 mg/dL (0.2-1); BLOOD UREA NITROGEN 9.8 mg/dL (7-18); CALCIUM 8.4 mg/dL (8.5-10.1); CREATININE 0.7 mg/dL (0.55-1.3); MAGNESIUM 1.9 mg/dL (1.8-2.4); PHOSPHOROUS 2.6 mg/dL (2.5-4.9); POTASSIUM 3.6 mmol/L (3.5-5.1); TOT PROT 6.2 g/dl (6.4-8.2)
[2019-05-05] MEDS ORDERED: DEXTROSE 5%-WATER 100 ML IVPB ONE (08:36)
[2019-05-05] MEDS: CEFTRIAXONE 2 GM in DEXTROSE 5%-WATER 100 ML IVPB SCH (09:19)
[2019-05-05] MEDS: metoPROLOL SUCCINATE 25 MG TAB.SR.24H (FP) PO SCH ×2 (09:20→22:11)
--- NOTE | 2019-05-05 09:49 | PN ---
Progress Note, Physician Chief Complaint: no cp or SOB TELE: AF 80-90, 3 beats NSVT - Current Medication List Current Medications: Active Medications Sodium Chloride (Normal Saline -) 1,000 mls @ 100 mls/hr IV ASDIR [facility] Last Admin: 05/04/19 22:47 Dose: 100 mls/hr Vancomycin HCl (Vancomycin (Pre-Docked)) 1,000 mg in 250 mls @ 166.667 mls/hr IVPB Q12H [facility]; Protocol Last Admin: 05/05/19 01:33 Dose: 166.667 mls/hr Ceftriaxone Sodium 2 gm/ (Dextrose) 100 mls @ 200 mls/hr IVPB DAILY STEPHANIE; Protocol Last Admin: 05/05/19 09:19 Dose: 200 mls/hr Insulin Aspart (Novolog Vial Sliding Scale -) 1 vial SQ TIDAC [facility]; Protocol Last Admin: 05/05/19 06:08 Dose: Not Given Insulin Detemir (Levemir Vial) 10 units SQ HS [facility] Last Admin: 05/04/19 22:45 Dose: Not Given Metoprolol Succinate (Toprol Xl -) 25 mg PO BID [facility] Last Admin: 05/05/19 09:20 Dose: 25 mg - Objective Vital Signs: Vital Signs Temperature 97.6 F 05/05/19 05:22 Pulse Rate 62 05/05/19 05:22 Respiratory Rate 17 05/05/19 05:22 Blood Pressure 102/58 L 05/05/19 05:22 O2 Sat by Pulse Oximetry (%) 94 L 05/04/19 21:00 Constitutional: Yes: No Distress Cardiovascular: Yes: Pulse Irregular Respiratory: Yes: CTA Bilaterally Gastrointestinal: Yes: Soft (NT) Edema: No Neurological: Yes: Alert, Oriented Labs: CBC, BMP 05/05/19 07:25 05/05/19 07:25 INR, PTT INR 1.60 (0.83-1.09) H 05/02/19 19:06 - ....Imaging EKG: Image Reviewed Assessment/Plan a/p: 88 f hx cad s/p pci, nstemi, cabg 2018, dm, htn, hld, pafib, here with dizzy, blurry vision, weakness. sepsis: -infectious w/u in progress, has +bld cxs -abx per ID cad, cabg: -mild trop elevation with flat trend and nl ck, not c/w acs, more likely demand from sepsis -ecg w/o acute changes -holding home steve, bb due to sepsis/low bp pafib: -cont BB -was on eliquis 5 bid at home, holding for LP, if not planned then resume AC htn: -initial hypotension, improved. BB resumed. hld: -holding statin due to elevated lfts as: -mod on recent echo -hold home lasix due to sepsis, low bp -no signs chf
--- NOTE | 2019-05-05 10:15 | PN ---
Progress Note (short form) - Note Progress Note: This is a 88 year old female with PMH significant for CAD (CABG in 2018 and 2x stents in 2016), AFib (on Eliquis), DM, HTN, and HLD. She presented to hospital for chest pain, blurring of vision and confused. Patient is found to have fever of 102. Patient has histor of Atrial fibrillation and is on eliquis. She has been confused in ed and agitated. She is oriented x 1 as per nursing staff. There is no reported fall, seizure like activiity or hemiparesis, dysarthria or diplopia. She was given zosyn, vanco and ampicillin for meningitis coverage. Patient has improved markedly. She has mild headache, and ID recommend to reduce abx. NEUROLOGICAL EXAMINATION Alert oriented x 3, speech is normal, neck is supple. eomi, pupils reactive no face asymmetry moving all ext sensation is grossly normal reflex are diminished ct head Unremarkable mri of brain pending Assessment/Plan Acute deliruim secondary to septicemia ( high wbc and fever), hold spinal tap Plan: Continue current level of care, hold spinal tap for now, she is back to baseline -continue abx as per ID and PMD. Thanking you so much Nathan Shore MD
[2019-05-05] MEDS: SODIUM CHLORIDE 1,000 ML IV SCH (11:09)
[2019-05-05] MEDS: APIXABAN 5 MG TABLET PO SCH ×2 (12:15→22:11)
--- NOTE | 2019-05-05 13:12 | PN ---
Progress Note (short form) - Note Progress Note: alert no complaints Vital Signs Period Temp Pulse Resp BP Sys/Phelps Pulse Ox Last 24 Hr 97.6 F-99.2 F 62-96 17-18 102-156/58-93 94 left forearm ecchymoses cor-rrr lungs clear abd soft,nt ext no edema +salvador CBC, BMP 05/05/19 07:25 05/05/19 07:25 Microbiology 05/02/19 19:20 Blood - Peripheral Venous Blood Culture - Final Streptococcus Viridans 05/02/19 19:06 Blood - Peripheral Venous Blood Culture - Final Streptococcus Mitis 05/04/19 09:38 Blood - Peripheral Venous Blood Culture - Preliminary NO GROWTH OBTAINED AFTER 24 HOURS, INCUBATION TO CONTINUE FOR 4 DAYS. 05/04/19 09:25 Blood - Peripheral Venous Blood Culture - Preliminary NO GROWTH OBTAINED AFTER 24 HOURS, INCUBATION TO CONTINUE FOR 4 DAYS. 05/03/19 18:15 Urine For Antigen Detection Legionella Antigen - Final 05/03/19 18:15 Urine For Antigen Detection Streptococcus pneumoniae Antigen (M - Final 05/02/19 19:20 Urine - Urine Clean Catch Urine Culture - Final Strep Agalactiae Group B Normal Urogenital Janie Current Medications Apixaban (Eliquis -) 5 mg PO BID STEPHANIE Last Admin: 05/05/19 12:15 Dose: 5 mg Atorvastatin Calcium (Lipitor -) 40 mg PO HS STEPHANIE Sodium Chloride (Normal Saline -) 1,000 mls @ 100 mls/hr IV ASDIR STEPHANIE Last Admin: 05/05/19 11:09 Dose: 100 mls/hr Vancomycin HCl (Vancomycin (Pre-Docked)) 1,000 mg in 250 mls @ 166.667 mls/hr IVPB Q12H STEPHANIE; Protocol Last Admin: 05/05/19 01:33 Dose: 166.667 mls/hr Ceftriaxone Sodium 2 gm/ (Dextrose) 100 mls @ 200 mls/hr IVPB DAILY [facility]; Protocol Last Admin: 05/05/19 09:19 Dose: 200 mls/hr Insulin Aspart (Novolog Vial Sliding Scale -) 1 vial SQ TIDAC [facility]; Protocol Last Admin: 05/05/19 12:15 Dose: 2 units Insulin Detemir (Levemir Vial) 10 units SQ HS [facility] Last Admin: 05/04/19 22:45 Dose: Not Given Metoprolol Succinate (Toprol Xl -) 25 mg PO BID STEPHANIE Last Admin: 05/05/19 09:20 Dose: 25 mg MRI with multiple lacunar infarcts a/p fever/sepsis strep viridans bacteremia-clinical picture most c/w endocarditis- ?dental in origin, last dental visit over a year ago d/w cardiology- ?LANDON continue roocephin d/c vancomycin will need 4 weeks of treatment afib +troponins d/w patient and sisterinlaw at bedside- explained need for picc line and 4 weeks of antibiotics d/w resident Problem List - Problems (1) Fever Code(s): R50.9 - FEVER, UNSPECIFIED (2) Bacteremia Code(s): R78.81 - BACTEREMIA (3) Confusion Code(s): R41.0 - DISORIENTATION, UNSPECIFIED
--- NOTE | 2019-05-05 13:57 | PN ---
Physical Exam: SUBJECTIVE: Patient seen and examined at the bedside. Was AOx4 today, appears to be improving. States she feels well and the mild head ache she was having yesterday has resolved. OBJECTIVE: Vital Signs Period Temp Pulse Resp BP Sys/Phelps Pulse Ox Last 24 Hr 97.6 F-99.2 F 62-96 17-18 102-156/58-93 94 GENERAL: AOx4 HEAD: Normal with no signs of trauma. EYES: Pupils equal, round and reactive to light, extraocular movements intact, sclera anicteric, conjunctiva clear. No lid lag. EARS, NOSE, THROAT: Ears normal, nares patent, oropharynx mildly erythematous but clear without exudates. Moist mucous membranes. NECK: Normal range of motion, supple without lymphadenopathy. LUNGS: Breath sounds equal, clear to auscultation bilaterally. No accessory muscle use. HEART: Regular rate and rhythm, S1 and S2, soft diastolic murmur at 2nd intercostal space, on L sternal border. ABDOMEN: Soft, nontender to palpation, not distended, normoactive bowel sounds, no guarding, no rebound. MUSCULOSKELETAL: Normal range of motion at all joints. No bony deformities or tenderness. UPPER EXTREMITIES: 2+ pulses, warm, well-perfused. Non-pitting edema of the LUE which the patient notes is chronic s/p L sided mastectomy. LOWER EXTREMITIES: non-tender to palpation NEUROLOGICAL: Cranial nerves II-XII intact. Normal speech. Strength UE: 5/5 B/ L LE: 5/5 B/L Sensations UE : intact LE: intact SKIN: Warm, dry, normal turgor, no rashes or lesions noted. Laboratory Results - last 24 hr 05/04/19 05/04/19 05/04/19 13:24 17:06 22:36 WBC RBC Hgb Hct MCV MCH MCHC RDW Plt Count MPV Sodium 139 Potassium 3.4 L Chloride 106 Carbon Dioxide 25 Anion Gap 7 L BUN 11.6 Creatinine 0.7 Est GFR (CKD-EPI)AfAm 90.93 Est GFR (CKD-EPI)NonAf 78.45 POC Glucometer 155 108 Random Glucose 156 H Calcium 8.2 L Phosphorus Magnesium Total Bilirubin AST ALT Alkaline Phosphatase Total Protein Albumin 05/05/19 05/05/19 05/05/19 05:02 07:25 07:25 WBC 7.0 RBC 3.83 Hgb 12.0 Hct 34.5 MCV 90.1 MCH 31.2 MCHC 34.7 RDW 14.2 Plt Count 101 L MPV 10.5 Sodium 142 Potassium 3.6 Chloride 107 Carbon Dioxide 25 Anion Gap 10 BUN 9.8 Creatinine 0.7 Est GFR (CKD-EPI)AfAm 90.93 Est GFR (CKD-EPI)NonAf 78.45 POC Glucometer 148 Random Glucose 115 H Calcium 8.4 L Phosphorus 2.6 Magnesium 1.9 Total Bilirubin 0.4 AST 30 ALT 24 Alkaline Phosphatase 63 Total Protein 6.2 L Albumin 2.5 L 05/05/19 11:18 WBC RBC Hgb Hct MCV MCH MCHC RDW Plt Count MPV Sodium Potassium Chloride Carbon Dioxide Anion Gap BUN Creatinine Est GFR (CKD-EPI)AfAm Est GFR (CKD-EPI)NonAf POC Glucometer 160 Random Glucose Calcium Phosphorus Magnesium Total Bilirubin AST ALT Alkaline Phosphatase Total Protein Albumin Active Medications Generic Name Dose Route Start Last Admin Trade Name Freq PRN Reason Stop Dose Admin Apixaban 5 mg 05/05/19 11:15 05/05/19 12:15 Eliquis - PO 5 mg BID STEPHANIE Administration Atorvastatin Calcium 40 mg 05/05/19 22:00 Lipitor - PO HS STEPHANIE Sodium Chloride 1,000 mls @ 100 mls/hr 05/03/19 09:49 05/05/19 11:09 Normal Saline - IV 100 mls/hr ASDIR STEPHANIE Administration Ceftriaxone Sodium 2 gm/ 100 mls @ 200 mls/hr 05/05/19 10:00 05/05/19 09:19 Dextrose IVPB 200 mls/hr DAILY STEPHANIE Administration Protocol Insulin Aspart 1 vial 05/03/19 16:30 05/05/19 12:15 Novolog Vial Sliding Scale - SQ 2 units TIDAC STEPHANIE Administration Protocol Insulin Detemir 10 units 05/03/19 22:00 05/04/19 22:45 Levemir Vial SQ Not Given HS STEPHANIE Metoprolol Succinate 25 mg 05/04/19 22:00 05/05/19 09:20 Toprol Xl - PO 25 mg BID STEPHANIE Administration Imaging: MRI Brain- Moderate volume loss and mild periventricular chronic microvascular ischemic disease changes. Bilateral supratentorial acute/subacute nonhemorrhagic lacunar infarcts as well as an acute/ subacute nonhemorrhagic lacunar infarct in the left cerebellum and cerebellar peduncle suspicious for thrombotic emboli. No abnormal intracranial enhancement or meningeal thickening is identified to suggest meningitis. Correlate to determine further evaluation and follow-up. A preliminary report was forwarded by the [facility] service, IMAGING SOCIAL MEDIA SPECIALIST ASSESSMENT/PLAN: 88 YO F with PMH of CAD (CABG in 2018 and 2x stents in 2016), AFib (on Eliquis) , DM, HTN, and HLD. Presented to the ER with complaints of chest pain and blurry vision, with associated dizziness, light headedness, and nausea. She was admitted for suspected sepsis 2/2 meningitis. #Sepsis - blood cx growing strep mitis > most likely cause of AMS - LA 2.8> 4.4> 1.7 - Continue Ceftriaxone, will need 4 weeks of antibiotic treatment - discontinue Vancomycin - f/u repeat blood cultures - MRI brain showing > mild periventricular chronic microvascular ischemic disease changes with bilteral supratentorial acute/ subacute non-hemorrhagi lacunar infarcts. There was also an acute/ subacute nonhemorrhagic lacunar infarct in the left cerebellum and cerebellar peduncle suspicious for thrombotic emboli. There was no evidence of meningitis> concern for septic emboli, will discuss with cardiology as patient may require LANDON - Carotic U/S was also ordered because differential for emboli also include cardiovascular disease. U/S showed mild-moderate stenosis of the L ICA (60-79% stenosed). - Neuro checks, fall precautions - Continue IVF NS 100cc/hr - ID following, appreciate recommendations #Chest pain > resolved - EKG: sinus tachycardia with ST depressions in leads I,II,V5, and V6 > Repeat EKG showing sinus rhythm and resolution of ST depressions - Trop 0.18 > 0.32 >0.45 >0.32, resolving, most likely 2/2 demand ischemia - Tele monitoring - CT AP showed evidence of cholelithiasis and diverticulosis, but no acute process - Echo did not show any evidence of vegetations> however, based on new brain MRI findings there is some concern for septic emboli. Will discuss with cardiology as patient may require LANDON - Cardiology consulted, appreciate recommendations - resuming home metoprolol 25 mg PO BID as patients systolic bps back into the 140s # Hx of Afib - resuming Eliquis 5mg BID - resuming metoprolol # Hx of HTN - resume metoprolol - continue to hold lisinopril # Hx of HLD: - resuming Lipitor - 40 mg PO HS STEPHANIE # DM with sepsis -continue levemir to 10 #DVT PE - SCDs, Eliquis BID #FEN - NS 100cc/r - Replete lytes PRN - Diabetic diet Visit type - Emergency Visit Emergency Visit: Yes ED Registration Date: 05/02/19 Care time: The patient presented to the Emergency Department on the above date and was hospitalized for further evaluation of their emergent condition. - New Patient This patient is new to me today: No - Critical Care Critical Care patient: No ATTENDING PHYSICIAN STATEMENT I saw and evaluated the patient. I reviewed the resident's note and discussed the case with the resident. I agree with the resident's findings and plan as documented. SUBJECTIVE: OBJECTIVE: ASSESSMENT AND PLAN:
--- NOTE | 2019-05-05 19:10 | PN ---
Teaching Attending Note Name of Resident: Jennifer Bryant ATTENDING PHYSICIAN STATEMENT I saw and evaluated the patient. I reviewed the resident's note and discussed the case with the resident. I agree with the resident's findings and plan as documented. SUBJECTIVE: no pain, feels better , no CP or SOB . No DUEÑAS . OBJECTIVE: NAD, awake,pleasant MMM, no facial droop. CV: RRR, 3/6 diastolic murmur in LUSB and RUSB, with possible systolic murmur in LLSB . heard in back .no radiation to carotids Ext: trace edema, no erythema Lungs: CTAB ASSESSMENT AND PLAN: 88 y/o Lady with h/o a fib on eliquis, DM , HTN, CAD, s/p CABG, HL, brast cancer , s/p appendectomy who presented with fevwe, and AMS and CP 1- Sepsis with Strep viridance bacteremia. 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 off vanco - repeat blood cx neg 24 hr - dc IVF . - will need a picc , d/w ID - dental f/u as out pt - MRI with no enhancement of the meninges. - LANDON decision per cardio 2- acute/subacute non hemorrhagic infarcts of the brain. could be septic emboli vs ischemic emboli. suspicion fro non compliance with her eliquis per family. due - resume eliquis - CUS obtained. do not suspect that the stenossi seen is responsible due to bilateral distribution of infarcts - tele 3- Acute metabolic encephalopathy . resolved 4- H/o A fib: - resume eliquis - cont metorpolol 5- Dm : cont HS levemir and SSI . 6- HTN: cont to hold lisnopril 7- DVT PX: SCDs, eliquis as above
[2019-05-05] MEDS ORDERED: ATORVASTATIN CA 40 MG TABLET (FP) PO SCH (22:00)
[2019-05-05] MEDS: INSULIN (LEVEMIR) 100 UNITS/ML UNITS SQ SCH (22:10)
[2019-05-06] MEDS: INSULIN SLIDING SCALE (NOVOLOG) 1 VIAL SQ SCH ×2 (06:23→11:43)
[2019-05-06 08:42] LABS: HEMATOCRIT 33.1 % (32.4-45.2); HEMOGLOBIN 11.6 GM/dL (10.7-15.3); MCH 31.3 pg (25.7-33.7); MCHC 35.2 g/dl (32.0-36.0); MEAN CELL VOLUME 88.9 fl (80-96); PLATELET COUNT 123 K/MM3 (134-434); RBC 3.72 M/mm3 (3.60-5.2); RDW 13.9 % (11.6-15.6); WHITE BLOOD COUNT 6.8 K/mm3 (4.0-10.0)
[2019-05-06] MEDS ORDERED: DEXTROSE 5%-WATER 100 ML IVPB ONE (08:46)
--- NOTE | 2019-05-06 08:49 | PN ---
Progress Note, Physician Chief Complaint: remote ex cigs History of Present Illness: no longer confused, feels she is back to baseline denies headache no sob, orthopnea no cp, palpitations no cigs - Current Medication List Current Medications: Active Medications Apixaban (Eliquis -) 5 mg PO BID [facility] Last Admin: 05/05/19 22:11 Dose: 5 mg Atorvastatin Calcium (Lipitor -) 40 mg PO HS [facility] Last Admin: 05/05/19 22:11 Dose: 40 mg Ceftriaxone Sodium 2 gm/ (Dextrose) 100 mls @ 200 mls/hr IVPB DAILY [facility]; Protocol Last Admin: 05/05/19 09:19 Dose: 200 mls/hr Insulin Aspart (Novolog Vial Sliding Scale -) 1 vial SQ TIDAC [facility]; Protocol Last Admin: 05/06/19 06:23 Dose: Not Given Insulin Detemir (Levemir Vial) 10 units SQ [facility] Last Admin: 05/05/19 22:10 Dose: 10 unit Metoprolol Succinate (Toprol Xl -) 25 mg PO BID [facility] Last Admin: 05/05/19 22:11 Dose: 25 mg - Objective Vital Signs: Vital Signs Temperature 98.9 F 05/06/19 05:00 Pulse Rate 74 05/06/19 05:00 Respiratory Rate 18 05/05/19 21:00 Blood Pressure 140/78 05/06/19 05:00 O2 Sat by Pulse Oximetry (%) 94 L 05/05/19 21:00 Constitutional: Yes: No Distress, Calm Eyes: No: Sclera Icterus HENT: No: Nasal Congestion Cardiovascular: Yes: Regular Rate and Rhythm, Murmur (2/6 early peak ABEL rusb ( no diast murmurs0), S1, S2, Other (PMI non diplaced). No: JVD, Gallop Respiratory: Yes: CTA Bilaterally. No: Accessory Muscle Use, Rales, Wheezes Gastrointestinal: Yes: Normal Bowel Sounds, Soft. No: Tenderness Musculoskeletal: Yes: Other (No kyphosis) Extremities: No: Cyanosis Edema: No Integumentary: No: Jaundice Neurological: Yes: Alert, Oriented (x3) Psychiatric: No: Agitated Labs: INR, PTT INR 1.60 (0.83-1.09) H 05/02/19 19:06 Assessment/Plan Echo: TDS. nl LV/EF. RV not seen. mild LAE/GEORGE. severe mitral stenosis, mild- mod MR. mild TR. mild (23/14 mmHg). no vegetation noted. tele: NSR, no fib/flutter a/p: 88 f hx cad s/p pci, nstemi, cabg 2018, dm, htn, hld, pafib, here with dizzy, blurry vision, weakness. fever 102, strep viridans bacteremia, acute CVAs: -MRI brain bilateral acute/subacute nonhemorrhagic lacunar infarcts suspicious for emboli (no findings suggest meningitis) -ID input appreciated, agree with assessment = likely endocarditis here -echo images reviewed by me: AV and MV leaflets heavily thickened, not well seen , no large vegetation seen. TV not well seen, no large veg. no pathological valve dysfunction. -hold AC given incr risks of ICH in setting of embolic infarcts from endocarditis -rec transfer to tertiary center for expeditious LANDON wednesday AM (urgently if decompensates) and close neuro monitoring--will have surgical consult there for valve replacement if LANDON confirms SBE given septic emboli possible/probable here. d/w'd dr bermudez, pt accepted for transfer to [facility] CCU cad, cabg: -mild trop elevation with flat trend and nl ck, not c/w acs, more likely demand from sepsis -ecg w/o acute changes, no chest pain -holding home steve, bb due to sepsis/low bp pafib: -cont BB -hold eliquis due to endocarditis picture with septic embolic carotid athero: -60-79% LICA plaque on carotids here (PSV 157, EDV 41) -likely non-surgical range since asymptomatic (current CVAs not attributable to this given bilateral distribution). -routine outpt f/u htn: -initial hypotension, improved. BB resumed. hld: -holding statin due to elevated lfts as: -mod on recent office echo -present images reviewed: valve not well seen, leaflet excursion at least moderately restricted (possibly severely so). gradients appear well-aligned, in moderate range. LVOT PW VTI measurement erroenously high leading to over- estimate of ANITHA. -no signs chf severe mitral stenosis: -no chf sx's, appears euvolemic. lasix on hold in light of sepsis with risk of hypotension
[2019-05-06 08:55] LABS: BLOOD UREA NITROGEN 11.4 mg/dL (7-18); CALCIUM 8.6 mg/dL (8.5-10.1); CREATININE 0.6 mg/dL (0.55-1.3); POTASSIUM 3.4 mmol/L (3.5-5.1)
[2019-05-06] MEDS: CEFTRIAXONE 2 GM in DEXTROSE 5%-WATER 100 ML IVPB SCH (09:13)
[2019-05-06] MEDS: metoPROLOL SUCCINATE 25 MG TAB.SR.24H (FP) PO SCH (09:13)
--- NOTE | 2019-05-06 10:31 | PN ---
Progress Note (short form) - Note Progress Note: alert no complaints salvador removed Vital Signs Period Temp Pulse Resp BP Sys/Phelps Pulse Ox Last 24 Hr 97.3 F-99.4 F 74-91 18-18 140-152/74-87 94 cor-rrr 2/6 karely llungs clear abd soft,nt ext no edema CBC, BMP 05/06/19 07:43 05/06/19 07:45 Microbiology 05/04/19 09:38 Blood - Peripheral Venous Blood Culture - Preliminary NO GROWTH OBTAINED AFTER 48 HOURS, INCUBATION TO CONTINUE FOR 3 DAYS. 05/04/19 09:25 Blood - Peripheral Venous Blood Culture - Preliminary NO GROWTH OBTAINED AFTER 48 HOURS, INCUBATION TO CONTINUE FOR 3 DAYS. 05/02/19 19:20 Blood - Peripheral Venous Blood Culture - Final Streptococcus Viridans 05/02/19 19:06 Blood - Peripheral Venous Blood Culture - Final Streptococcus Mitis 05/03/19 18:15 Urine For Antigen Detection Legionella Antigen - Final 05/03/19 18:15 Urine For Antigen Detection Streptococcus pneumoniae Antigen (M - Final 05/02/19 19:20 Urine - Urine Clean Catch Urine Culture - Final Strep Agalactiae Group B Normal Urogenital Janie MRI with multiple lacunar infarcts a/p strep viridans bacteremia-clinical picture most c/w endocarditis- ?dental in origin, last dental visit over a year ago d/w cardiology- ?LANDON repeat blood cultures are negative continue roocephin will need 4 weeks of treatment d/w patient at length, she is reluctant to go to SNF afib +troponins d/w hospitalist Problem List - Problems (1) Fever Code(s): R50.9 - FEVER, UNSPECIFIED (2) Bacteremia Code(s): R78.81 - BACTEREMIA (3) Confusion Code(s): R41.0 - DISORIENTATION, UNSPECIFIED
[2019-05-06] MEDS ORDERED: POTASSIUM CHLORIDE TABS 20 MEQ TABLET.ER (FP) PO ONE (11:29)
--- NOTE | 2019-05-06 11:29 | PN ---
Progress Note (short form) - Note Progress Note: This is a 88 year old female with PMH significant for CAD (CABG in 2018 and 2x stents in 2016), AFib (on Eliquis), DM, HTN, and HLD. She presented to hospital for chest pain, blurring of vision and confused. Patient is found to have fever of 102. Patient has histor of Atrial fibrillation and is on eliquis. She has been confused in ed and agitated. She is oriented x 1 as per nursing staff. There is no reported fall, seizure like activiity or hemiparesis, dysarthria or diplopia. She was given zosyn, vanco and ampicillin for meningitis coverage. Her mri showed bihemispheric small lacunar stroke NEUROLOGICAL EXAMINATION Alert oriented x 3, speech is normal, neck is supple. eomi, pupils reactive no face asymmetry moving all ext sensation is grossly normal reflex are diminished ct head Unremarkable mri showed there is bihemispheric lacunar stroke Assessment/Plan Acute deliruim secondary to septicemia ( high wbc and fever), hold spinal tap Plan: Continue current level of care, hold spinal tap for now, she is back to baseline -continue abx as per ID and PMD. - Bihemispheric stroke, seems to be secondary to atrial fibrillation , suggest to continue eliquis and do not recommend adding aspirin as it would increase risk of bleed and these findings are asymptomatic and she is back to her baseline Thanking you so much Nathan Shore MD
--- NOTE | 2019-05-06 12:03 | PN ---
Teaching Attending Note Name of Resident: Tashia Barnes ATTENDING PHYSICIAN STATEMENT I saw and evaluated the patient. I reviewed the resident's note and discussed the case with the resident. I agree with the resident's findings and plan as documented. SUBJECTIVE: no pain, no fever or chills. No DUEÑAS . feels much better OBJECTIVE: NAD, awake,pleasant . MMM, no facial droop. CV: RRR, 3/6 diastolic murmur in LUSB and RUSB, with possible systolic murmur in LLSB . heard in back .no radiation to carotids Ext: trace edema on legs , no erythema. LUE edema ( chronic ) Lungs: CTAB Abd: soft , slightly distended, hyperactive BS ASSESSMENT AND PLAN: 88 y/o Lady with h/o a fib on eliquis, DM , HTN, Mod , CAD, s/p CABG, HL, breast cancer , s/p appendectomy who presented with fever and AMS and CP. 1- Sepsis with Strep viridance bacteremia. 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 - repeat blood cx neg x48 hr - d/w Tristin simpson, will need LANDON and monitoring in a tertiary center, as she might have vegetations that might require valve surgery. - will transfer to [facility] if patient and family agrees. - dc eliquis after d/w card. 2- acute/subacute non hemorrhagic infarcts of the brain. likely septic emboli - hold eliquis, due to increased risk of bleeding - tele - resume her home dose statin - LANDON 3- Acute metabolic encephalopathy. resolved 4- H/o A fib: - hold eliquis as above - cont metoprolol 5- obtain KUB due to hyperactive BS and distended abdomen 6- DVT PX : SCDs for now dispo : will transfer to [facility] if she and family agree
[2019-05-06 16:00] VITALS: BP 120/71; PULSE 78; TEMP 98.4
--- NOTE | 2019-05-07 21:30 | DS ---
Physical Exam: SUBJECTIVE: Patient seen and examined at the bedside, there were no acute events overnight. The patient reports she is feeling better with antibiotics. OBJECTIVE: Last Vital Signs Temp Pulse Resp BP Pulse Ox 98.4 F 78 18 120/71 94 L 05/06/19 14:00 05/06/19 14:00 05/06/19 14:00 05/06/19 14:00 05/06/19 09:00 PHYSICAL EXAM GENERAL: AOx4 HEAD: Normal with no signs of trauma. EYES: Pupils equal, round and reactive to light, extraocular movements intact, sclera anicteric, conjunctiva clear. No lid lag. EARS, NOSE, THROAT: Ears normal, nares patent, oropharynx mildly erythematous but clear without exudates. Moist mucous membranes. NECK: Normal range of motion, supple without lymphadenopathy. LUNGS: Breath sounds equal, clear to auscultation bilaterally. No accessory muscle use. HEART: Regular rate and rhythm, S1 and S2, soft diastolic murmur at 2nd intercostal space, on L sternal border. ABDOMEN: Soft, nontender to palpation, not distended, normoactive bowel sounds, no guarding, no rebound. MUSCULOSKELETAL: Normal range of motion at all joints. No bony deformities or tenderness. UPPER EXTREMITIES: 2+ pulses, warm, well-perfused. Non-pitting edema of the LUE which the patient notes is chronic s/p L sided mastectomy. LOWER EXTREMITIES: non-tender to palpation NEUROLOGICAL: Cranial nerves II-XII intact. Normal speech. Strength UE: 5/5 B/ L LE: 5/5 B/L Sensations UE : intact LE: intact SKIN: Warm, dry, normal turgor, no rashes or lesions noted. LABS CBC, BMP 05/06/19 07:43 05/06/19 07:45 Laboratory Last Values WBC 6.8 K/mm3 (4.0-10.0) 05/06/19 07:43 RBC 3.72 M/mm3 (3.60-5.2) 05/06/19 07:43 Hgb 11.6 GM/dL (10.7-15.3) 05/06/19 07:43 Hct 33.1 % (32.4-45.2) 05/06/19 07:43 MCV 88.9 fl (80-96) 05/06/19 07:43 MCH 31.3 pg (25.7-33.7) 05/06/19 07:43 MCHC 35.2 g/dl (32.0-36.0) 05/06/19 07:43 RDW 13.9 % (11.6-15.6) 05/06/19 07:43 Plt Count 123 K/MM3 (134-434) L D 05/06/19 07:43 MPV 10.0 fl (7.5-11.1) 05/06/19 07:43 Absolute Neuts (auto) 15.1 K/mm3 (1.5-8.0) H 05/02/19 19:06 Total Counted 100 05/02/19 19:06 Neutrophils % 93.1 % (42.8-82.8) H 05/02/19 19:06 Neutrophils % (Manual) 90.7 % (42.8-82.8) H 05/02/19 19:06 Band Neutrophils % 2.1 % 05/02/19 19:06 Lymphocytes % 2.7 % (8-40) L D 05/02/19 19:06 Lymphocytes % (Manual) 2.1 % (8-40) L 05/02/19 19:06 Monocytes % 3.9 % (3.8-10.2) 05/02/19 19:06 Monocytes % (Manual) 4 % (3.8-10.2) 05/02/19 19:06 Eosinophils % 0.0 % (0-4.5) D 05/02/19 19:06 Eosinophils % (Manual) 0.0 % (0-4.5) 05/02/19 19:06 Basophils % 0.3 % (0-2.0) 05/02/19 19:06 Basophils % (Manual) 0.0 % (0-2.0) 05/02/19 19:06 Myelocytes % (Man) 0 % (0-2) 05/02/19 19:06 Promyelocytes % (Man) 0 % (0-2) 05/02/19 19:06 Blast Cells % (Manual) 0 % (0-0) 05/02/19 19:06 Nucleated RBC % 0 % (0-0) 05/02/19 19:06 Metamyelocytes 1 % (0-2) 05/02/19 19:06 Platelet Estimate Decreased 05/02/19 19:06 Platelet Comment Present 05/02/19 19:06 PT with INR 19.00 SEC (9.7-13.0) H 05/02/19 19:06 INR 1.60 (0.83-1.09) H 05/02/19 19:06 PTT (Actin FS) 33.8 SECONDS (25.2-36.5) 05/02/19 19:06 VBG pH 7.44 (7.31-7.41) H 05/02/19 19:20 POC VBG pCO2 36.0 mmHg (38-52) L 05/02/19 19:20 POC VBG pO2 < 49 mmHg (28-48) H 05/02/19 19:20 VBG HCO3 23.9 mmol/L (23-29) 05/02/19 19:20 VBG O2 Sat (Betty) 49.4 % (70-80) L 05/02/19 19:20 VBG Base Excess 0.5 meq/l (-2-2) 05/02/19 19:20 Sodium 140 mmol/L (136-145) 05/06/19 07:45 Potassium 3.4 mmol/L (3.5-5.1) L 05/06/19 07:45 Chloride 105 mmol/L (98-107) 05/06/19 07:45 Carbon Dioxide 24 mmol/L (21-32) 05/06/19 07:45 Anion Gap 12 MMOL/L (8-16) 05/06/19 07:45 BUN 11.4 mg/dL (7-18) 05/06/19 07:45 Creatinine 0.6 mg/dL (0.55-1.3) 05/06/19 07:45 Est GFR (CKD-EPI)AfAm 95.66 05/06/19 07:45 Est GFR (CKD-EPI)NonAf 82.53 05/06/19 07:45 POC Glucometer 211 UNITS (80-120) 05/06/19 11:08 Random Glucose 140 mg/dL (74-106) H 05/06/19 07:45 Lactic Acid 1.7 mmol/L (0.4-2.0) 05/03/19 16:00 Calcium 8.6 mg/dL (8.5-10.1) 05/06/19 07:45 Phosphorus 2.6 mg/dL (2.5-4.9) 05/05/19 07:25 Magnesium 1.9 mg/dL (1.8-2.4) 05/05/19 07:25 Total Bilirubin 0.4 mg/dL (0.2-1) 05/05/19 07:25 AST 30 U/L (15-37) 05/05/19 07:25 ALT 24 U/L (13-61) 05/05/19 07:25 Alkaline Phosphatase 63 U/L (45-117) 05/05/19 07:25 Creatine Kinase 236 U/L (26-192) H 05/03/19 21:30 Creatine Kinase Index 0.5 % (0.0-5.0) 05/03/19 21:30 CK-MB (CK-2) 1.4 ng/mL (0.5-3.6) 05/03/19 21:30 Troponin I 0.32 ng/ml (0.00-0.05) H 05/03/19 21:30 Total Protein 6.2 g/dl (6.4-8.2) L 05/05/19 07:25 Albumin 2.5 g/dl (3.4-5.0) L 05/05/19 07:25 Vitamin B12 224 pg/ml (193-986) 05/03/19 03:14 Serum Folate 3 ng/mL (3.1-17.5) L 05/03/19 03:14 TSH 0.17 uIU/ml (0.358-3.74) L 05/03/19 03:14 Urine Color Yellow 05/02/19 19:20 Urine Appearance Clear 05/02/19 19:20 Urine pH 5.0 (5.0-8.0) 05/02/19 19:20 Ur Specific [place] 1.017 (1.010-1.035) 05/02/19 19:20 Urine Protein Negative (NEGATIVE) 05/02/19 19:20 Urine Glucose (UA) Negative (NEGATIVE) 05/02/19 19:20 Urine Ketones 1+ (NEGATIVE) H 05/02/19 19:20 Urine Blood Negative (NEGATIVE) 05/02/19 19:20 Urine Nitrite Negative (NEGATIVE) 05/02/19 19:20 Urine Bilirubin Negative (NEGATIVE) 05/02/19 19:20 Urine Urobilinogen 0.2 mg/dL (0.2-1.0) 05/02/19 19:20 Ur Leukocyte Esterase 1+ (NEGATIVE) H 05/02/19 19:20 Urine WBC (Auto) 4 /hpf (0-5) 05/02/19 19:20 Urine RBC (Auto) 2 /hpf (0-4) 05/02/19 19:20 Urine Casts (Auto) 12 /lpf (0-8) 05/02/19 19:20 U Epithel Cells (Auto) 2.4 /HPF (0-5/HPF) 05/02/19 19:20 Urine Bacteria (Auto) 3.4 /hpf (NEGATIVE) 05/02/19 19:20 Microbiology 05/04/19 09:38 Blood - Peripheral Venous Blood Culture - Preliminary NO GROWTH OBTAINED AFTER 72 HOURS, INCUBATION TO CONTINUE FOR 2 DAYS. 05/04/19 09:25 Blood - Peripheral Venous Blood Culture - Preliminary NO GROWTH OBTAINED AFTER 72 HOURS, INCUBATION TO CONTINUE FOR 2 DAYS. 05/02/19 19:20 Blood - Peripheral Venous Blood Culture - Final Streptococcus Viridans 05/02/19 19:06 Blood - Peripheral Venous Blood Culture - Final Streptococcus Mitis 05/03/19 18:15 Urine For Antigen Detection Legionella Antigen - Final 05/03/19 18:15 Urine For Antigen Detection Streptococcus pneumoniae Antigen (M - Final 05/02/19 19:20 Urine - Urine Clean Catch Urine Culture - Final Strep Agalactiae Group B Normal Urogenital Janie IMAGING: MRI Brain- Moderate volume loss and mild periventricular chronic microvascular ischemic disease changes. Bilateral supratentorial acute/subacute nonhemorrhagic lacunar infarcts as well as an acute/ subacute nonhemorrhagic lacunar infarct in the left cerebellum and cerebellar peduncle suspicious for thrombotic emboli. No abnormal intracranial enhancement or meningeal thickening is identified to suggest meningitis. Correlate to determine further evaluation and follow-up. HOSPITAL COURSE: Date of Admission:05/02/19 88 YO F with PMH of CAD (CABG in 2018 and 2x stents in 2016), AFib (on Eliquis) , DM, HTN, and HLD. Presented to the ER with complaints of chest pain and blurry vision, with associated dizziness, light headedness, and nausea. She was admitted for suspected sepsis 2/2 meningitis. She initially had an elevated lactate of 2.8 and EKG findings which showed premature SVCs and T wave inversions but these both resolved with treatment. Her troponins were elvated to 0.45 but trended down and were most likely due to deman ischemia. Workup included blood cultures which grew strep viridans (specifically strep mitis). An Echo was preformed which revealed severe mitral stenosis and did not show evidence of vegetations. However, she also had an MRI which showed mild periventricular chronic microvascular ischemic disease changes with bilteral supratentorial acute/ subacute non-hemorrhagic lacunar infarcts. There was also an acute/ subacute nonhemorrhagic lacunar infarct in the left cerebellum and cerebellar peduncle suspicious for thrombotic emboli. There was no evidence of meningitis. Carotic U/S was also preformed because differential for emboli also include cardiovascular disease. U/S showed mild-moderate stenosis of the L ICA ( 60-79% stenosed). Because there was concern for septic emboli the patient was transferred to the CCU of [facility] for further management. The accepting physician was Dr. Aguirre. 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 # eliquis has been held after diagnosis of septic emboli # those meds in discharge packet are out patient meds . Disposition: TRANSFER ACUTE CARE/OTHER HOSP - Home Medications Comprehensive Discharge Medication List: Ambulatory Orders Lisinopril [Zestril] 20 mg PO DAILY 02/26/14 Atorvastatin Ca [Lipitor] 80 mg PO HS 01/29/16 Insulin Glargine,Hum.rec.anlog [Toujeo Solostar] 20 units SQ HS 01/29/16 Apixaban [Eliquis] 5 mg PO BID 05/03/19 Metoprolol Succinate 1 tablet PO BID 05/03/19 This patient is new to me today: No Emergency Visit: Yes ED Registration Date: 05/02/19 Care time: The patient presented to the Emergency Department on the above date and was hospitalized for further evaluation of their emergent condition. Critical Care patient: No - Discharge Referral Referred to [facility] No ATTENDING PHYSICIAN STATEMENT I saw and evaluated the patient. I reviewed the resident's note and discussed the case with the resident. I agree with the resident's findings and plan as documented. SUBJECTIVE: OBJECTIVE: ASSESSMENT AND PLAN:
== END 2019-05-06 17:57 | disposition short-term general hospital (02) | DRG 871 ==
LOC: JER 17:14 → JERBED 23:36 → J4S 05-03 20:23
PROVIDERS: ADMIT Internal Medicine; ATTEND Internal Medicine
DX: A40.9 Streptococcal sepsis, unspecified (principal); I63.9 Cerebral infarction, unspecified; G93.41 Metabolic encephalopathy; I33.9 Acute and subacute endocarditis, unspecified; I47.1 Supraventricular tachycardia; I24.8 Other forms of acute ischemic heart disease; E87.2 Acidosis; I65.22 Occlusion and stenosis of left carotid artery; R07.9 Chest pain, unspecified; D69.6 Thrombocytopenia, unspecified; E87.6 Hypokalemia; E11.9 Type 2 diabetes mellitus without complications; I10 Essential (primary) hypertension; I25.10 Atherosclerotic heart disease of native coronary artery without angina pectoris; Z98.61 Coronary angioplasty status; Z95.1 Presence of aortocoronary bypass graft; E78.5 Hyperlipidemia, unspecified; I48.0 Paroxysmal atrial fibrillation; K80.80 Other cholelithiasis without obstruction
CPT/HCPCS: 36415; 70450-TC; 70552-TC; 71045-TC-FY; 71260-TC; 74018-TC-FY; 74177-TC; 76700-TC; 80048; 80053; 81003; 82550; 82553; 82607; 82746; 82803; 82962; 83605; 83735; 84100; 84443; 84484; 85025; 85027; 85610; 85730; 87040; 87086; 87186; 87899; 93005; 93010; 93306-TC; 93880-TC; 97116-GP; 97162-GP; 99285-25; A9579; J0131; J7030